=== PATIENT | female | born 1955 | race Caucasian/White ===

== ENCOUNTER 2020-06-01 11:45 | Emergency (ER) | payer MEDICAID, SELFPAY ==
[2020-06-01 11:51] VITALS: BP 178/110; PULSE 91; RESP 18; TEMP 36.6; O2SAT 99; BMI 21.9
--- NOTE | 2020-06-01 13:04 | XR_ITS ---
EXAMINATION: XR SHOULDER, RIGHT CLINICAL INFORMATION: Worsening right shoulder pain. COMPARISON: None TECHNIQUE: Three views of the right shoulder. FINDINGS: There is loss of lateral joint space in AC joint space with periarticular spurring. No visible acute fracture, dislocation or subluxation seen. There is subchondral cystic changes along the superolateral humeral head. The soft tissues are normal. XR/XR shoulder RT min 2V IMPRESSION: Degenerative changes right glenohumeral joint and AC joint. No acute fracture or dislocation seen.
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
== END 2020-06-01 14:33 | disposition home or self-care (01) ==
PROVIDERS: Emergency Provider Emergency Medicine Emergency Medical Services
DX: S46.911A Strain of unspecified muscle, fascia and tendon at shoulder and upper arm level, right arm, initial encounter (principal); M79.601 Pain in right arm; X50.1XXA Overexertion from prolonged static or awkward postures, initial encounter; X50.9XXA Other and unspecified overexertion or strenuous movements or postures, initial encounter; Y93.9 Activity, unspecified; Y92.9 Unspecified place or not applicable; Y99.9 Unspecified external cause status; Z79.899 Other long term (current) drug therapy
CPT/HCPCS: 73030; 99283

== ENCOUNTER → 2020-06-13 11:09 | Outpatient (BNVA) | payer MEDICAID, SELFPAY | PROVIDERS: PCP Internal Medicine; Visit Provider Orthopaedic Surgery | DX: M75.01 Adhesive capsulitis of right shoulder (principal) | CPT/HCPCS: 99202 ==

== ENCOUNTER 2020-08-10 11:00 | Outpatient (RCR) | payer MEDICARE, OTHER, MEDICAID, SELFPAY ==
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
--- NOTE | 2020-08-15 09:49 | MHC.PT.DC ---
[facility] [place] Office [place] Office [place] Office [address] [facility] [phone] F: [phone] F: [phone] F: [phone] F: [phone] Physical Therapy Discharge Report Diagnosis: CAPSULITIS OF RIGHT SHOULDER Date of Surgery: Date of Evaluation: 06/26/20 Date of Discharge: 08/15/20 Treatments to Date: 8 Cancellations to Date: 3 No Shows to Date: 2 Discharge Status: Recommend MD Follow-up Discharge Summary: Pt continues to have most pain with shoulder abduction as well as limited ROM. pt issued ex sheet. D/C today from PT. pt to follow up with medical MD when her insurance is set up and ortho as needed. Electronically signed by: Juliet Camarillo PT, DPT Please sign and return to therapist. Thank you for your referral.
== END 2020-08-15 09:50 | disposition other institution (70) ==
LOC: HO.PT 11:00
PROVIDERS: Visit Provider Orthopaedic Surgery
DX: M75.01 Adhesive capsulitis of right shoulder (principal)
CPT/HCPCS: 97110; 97162

== ENCOUNTER 2021-03-14 11:33 | Outpatient (REF) | payer MEDICARE, SELFPAY ==
[2021-03-14 11:51] LABS: MANUAL DIFF FLAG NO
[2021-03-14 11:59] LABS: Basophils Percent Auto 0.8 % (0-2); Eosinophils Percent Auto 0.8 % (0-4); Hematocrit 44.9 % (37-47); Hemoglobin 14.5 g/dl (12.0-16.0); Imm Gran Abs Auto 0.01 X10*3/uL (0.00-0.03); Imm Gran Pct Auto 0.2 % (0.0-0.4); Lymphocytes Absolute Auto 1.5 X10*3/uL (1.2-4.9); Lymphocytes Percent Auto 29.6 % (20-40); Mean Corpuscular HGB Conc 32.3 g/dl (31.0-35.0); Mean Corpuscular Hemoglobin 29.2 pg (27.0-33.0); Mean Corpuscular Volume 90.3 fL (80-98); Mean Platelet Volume 9.3 fL (9.4-12.3); Monocytes Absolute Auto 0.7 X10*3/uL (0.1-1.2); Monocytes Percent Auto 12.8 % (2-11); Neutrophils Absolute Auto 2.8 X10*3/uL (2.0-8.3); Neutrophils Percent Auto 55.8 % (45-73); Platelet Count 204 X10*3/uL (160-400); Red Blood Count 4.97 X10*6/uL (4.20-5.50); Red Cell Distribution Width 14.3 % (11.0-16.0); White Blood Count 5.1 X10*3/uL (4.8-10.8)
[2021-03-14 12:49] LABS: Alanine Aminotransferase 181 U/L (0-31); Albumin Level 4.8 g/dL (3.5-5.0); Alkaline Phosphatase 104 U/L (39-117); Anion Gap 14 (12-20); Aspartate Amino Transferase 195 U/L (5-31); Bilirubin Total 0.8 mg/dL (0.0-1.0); Blood Urea Nitrogen 13 mg/dL (9-16); Calcium 9.9 mg/dL (8.4-10.2); Carbon Dioxide 27 mmol/L (22-29); Chloride 99 mmol/L (96-108); Cholesterol 239 mg/dL; Estimated Glomerular Filt Rate 52; Glucose Fasting 87 mg/dL (60-99); HDL Cholesterol 101 mg/dL; LDL Cholesterol Calculated 126 mg/dl; Potassium 4.2 mmol/L (3.3-5.1); Sodium 136 mmol/L (135-145); Total Protein 8.4 g/dL (6.5-8.0); Triglycerides 61 mg/dL
[2021-03-14 12:56] LABS: Thyroid Stimulating Hormone 0.87 uIU/mL (0.32-4.0)
[2021-03-19 14:21] LABS: Vitamin D 25-OH, D2 <4 ng/mL; Vitamin D 25-OH, D3 41 ng/mL; Vitamin D 25-OH, Total 41 ng/mL (30-100)
== END 2021-03-14 11:34 | disposition home or self-care (01) ==
LOC: HO.LAB 11:33
PROVIDERS: PCP Internal Medicine; Visit Provider Internal Medicine
DX: E78.5 Hyperlipidemia, unspecified (principal); I10 Essential (primary) hypertension; D64.9 Anemia, unspecified; F33.1 Major depressive disorder, recurrent, moderate; E55.9 Vitamin D deficiency, unspecified
CPT/HCPCS: 36415; 80053; 80061; 82306; 84443; 85025

== ENCOUNTER 2021-04-10 11:00 | Outpatient (RCR) | payer MEDICARE, MEDICAID, SELFPAY ==
[2021-04-09 09:58] VITALS: BP 150/85; PULSE 85
== END 2021-05-10 10:30 | disposition home or self-care (01) ==
LOC: HO.PT 11:00
PROVIDERS: PCP Internal Medicine; Visit Provider Nurse Practitioner Family
DX: R42 Dizziness and giddiness (principal)
CPT/HCPCS: 95992; 97112; 97162

== ENCOUNTER 2021-08-15 09:52 | Outpatient (REF) | payer MEDICARE, MEDICAID, SELFPAY ==
--- NOTE | ~2021-08-15 | MM_ITS ---
EXAMINATION: BONE DENSITOMETRY CLINICAL INDICATION: Encounter for screening for osteoporosis. COMPARISON: None (current study represents initial baseline exam). TECHNIQUE: Using a [employer] DXA System (software version: 13.1) manufactured by [employer], dual-energy x-ray absorptiometry was performed of the lumbar spine and left hip. The images are of good technical quality. Summary results are attached. FINDINGS: AP SPINE L1-L3 (excluding L4): The data of L1-L4 has been changed to exclude the L4 vertebral body, because generative changes at this level may cause overestimation of lumbar spine density. BMD 1.491 g/cm2, Z-score 4.0, T-score 2.7, normal. LEFT FEMUR, NECK: BMD 0.959 g/cm2, Z-score 0.7, T-score -0.6, normal. LEFT FEMUR, TOTAL: BMD 0.939 g/cm2, Z-score 0.5, T-score -0.5, normal. IDENTIFIED RISK FACTORS: 3 or more alcoholic drinks per day, recurrent falls, history of fracture (adult). Early menopause, secondary osteoporosis. HISTORY OF FRACTURE: Other. MEDICATIONS: Calcium supplements or multivitamin, vitamin D. MM/XR DEXA axial skeleton IMPRESSION: 1. DIAGNOSIS: Normal bone density based on the lowest T-score value of -0.6 in the femoral neck applying World Health Organization criteria. 2. 10-YEAR FRACTURE RISK PREDICTION, FRAX: According to the guidelines, FRAX calculation should only be performed on patients in the osteopenia bone density category. Therefore, FRAX was not performed on this patient. 3. Treatment Recommendations: NOF guidelines recommend consideration for treatment in postmenopausal women and men age 50 and older presenting with the following: -A hip or vertebral (clinical or morphometric) fracture. -T-score less than or equal to -2.5 at the femoral neck or spine after appropriate evaluation to exclude secondary causes. -Low bone mass at the hip or spine and a 10-year fracture probability by FRAX of greater than or equal to 3% for hip fracture or greater than or equal to 20% for major osteoporotic fracture based on the [place] adapted WHO algorithm. 4. Other Recommendations: All treatment decisions require clinical judgment and consideration of individual patient factors, including patient preferences, comorbidities, previous drug use, risk factors not captured in the FRAX model (e.g. frailty, falls, vitamin D deficiency, increased bone turnover, interval significant decline in bone density) and possible under or overestimation of fracture risk by FRAX. FUTURE SCAN RECOMMENDATION: People with diagnosed cases of osteoporosis or at high risk for fracture should have regular bone mineral density tests. For patients eligible for Medicare, routine testing is allowed once every 2 years. The testing frequency can be increased to one year for patients who have rapidly progressing disease, those who are receiving or discontinuing medical therapy to restore bone mass, or have additional risk factors.
--- NOTE | ~2021-08-15 | MM_ITS ---
EXAMINATION: MM SCREENING DIGITAL BREAST TOMOSYNTHESIS, BILATERAL CLINICAL INFORMATION: Screening. Asymptomatic. The lifetime risk of breast cancer based on the Tyrer-Cuzick Model is 4%. COMPARISON: Mammography: 05/18/2013 TECHNIQUE: Digital breast tomosynthesis is performed in both the craniocaudal and mediolateral oblique views along with computer-aided detection (CAD). Synthesized 2D images are generated from the tomosynthesis. FINDINGS: There are scattered areas of fibroglandular density (ACR BI-RADS breast composition Category b). There are no significant masses, abnormal calcifications, or other abnormalities. Parenchymal pattern is similar to prior exam 2012. The axilla are unremarkable. No significant changes. MM/MM tomosynthesis screening BI IMPRESSION: No mammographic evidence of malignancy. ASSESSMENT: BI-RADS 1: Negative RECOMMENDATION: Routine annual mammography screening. This patient's information was entered into a reminder system with a target due date for their next mammogram.
== END 2021-08-15 09:53 | disposition home or self-care (01) ==
LOC: HO.MAMMO 09:52
PROVIDERS: PCP Internal Medicine; Visit Provider Nurse Practitioner Family
DX: Z12.31 Encounter for screening mammogram for malignant neoplasm of breast (principal); Z13.820 Encounter for screening for osteoporosis; Z78.0 Asymptomatic menopausal state
CPT/HCPCS: 77063; 77067; 77080

== ENCOUNTER 2022-01-09 08:34 | Outpatient (REF) | payer OTHER, MEDICAID, SELFPAY ==
--- NOTE | ~2022-01-09 | XR_ITS ---
EXAMINATION: XR HIP, LEFT CLINICAL INFORMATION: Pain COMPARISON: Previous pelvis and right hip x-ray from 2015 TECHNIQUE: Two views of the left hip and one view of the pelvis. FINDINGS: There is arthritis at the left hip joint with joint space narrowing, osteophyte formation and subchondral cyst formation. There is a right hip replacement in satisfactory position. There is soft tissue calcification inferior to the right hip joint that appears unchanged. Bones of the pelvis are unremarkable. There are degenerative changes of the visualized lower lumbar spine. XR/XR hip LT w PEL1V IMPRESSION: Left hip arthritis.
== END 2022-01-09 08:35 | disposition home or self-care (01) ==
LOC: HO.HOSX 08:34
PROVIDERS: Visit Provider Physician Assistant
DX: M25.552 Pain in left hip (principal)
CPT/HCPCS: 73502

== ENCOUNTER 2022-03-01 09:14 | Outpatient (REF) | payer OTHER, SELFPAY ==
[2022-03-01 09:48] LABS: MANUAL DIFF FLAG NO
[2022-03-01 10:36] LABS: Basophils Absolute Auto 0.1 X10*3/uL (0.0-0.2); Basophils Percent Auto 1.1 % (0-2); Eosinophils Absolute Auto 0.1 X10*3/uL (0.0-0.4); Eosinophils Percent Auto 1.3 % (0-4); Hemoglobin 11.6 g/dl (12.0-16.0); Imm Gran Abs Auto 0.01 X10*3/uL (0.00-0.03); Imm Gran Pct Auto 0.2 % (0.0-0.4); Lymphocytes Absolute Auto 1.1 X10*3/uL (1.2-4.9); Lymphocytes Percent Auto 21.3 % (20-40); Mean Corpuscular HGB Conc 32.2 g/dl (31.0-35.0); Mean Corpuscular Hemoglobin 27.4 pg (27.0-33.0); Mean Corpuscular Volume 85.1 fL (80.0-98.0); Mean Platelet Volume 9.4 fL (9.4-12.3); Monocytes Absolute Auto 0.5 X10*3/uL (0.1-1.2); Monocytes Percent Auto 10.1 % (2-11); Neutrophils Absolute Auto 3.5 x10*3/uL (2.0-8.3); Platelet Count 254 X10*3/uL (160-400); Red Blood Count 4.23 X10*6/uL (4.20-5.50); Red Cell Distribution Width 14.2 % (11.0-16.0); White Blood Count 5.3 X10*3/uL (4.8-10.8)
[2022-03-01 11:03] LABS: Alanine Aminotransferase 15 U/L (0-31); Albumin Level 4.3 g/dL (3.5-5.0); Alkaline Phosphatase 83 U/L (39-117); Anion Gap 16 (12-20); Aspartate Amino Transferase 27 U/L (5-31); Bilirubin Total 0.5 mg/dL (0.0-1.0); Blood Urea Nitrogen 13 mg/dL (9-16); Calcium 9.5 mg/dL (8.4-10.2); Carbon Dioxide 26 mmol/L (22-29); Chloride 101 mmol/L (96-108); Cholesterol 196 mg/dL; Estimated Glomerular Filt Rate 58; Glucose Fasting 91 mg/dL (60-99); HDL Cholesterol 79 mg/dL; LDL Cholesterol Calculated 108 mg/dl; Potassium 4.7 mmol/L (3.3-5.1); Sodium 138 mmol/L (135-145); Total Protein 7.2 g/dL (6.5-8.0); Triglycerides 46 mg/dL
[2022-03-01 11:34] LABS: Folate 18.1 ng/mL (> or = 4.0); Vitamin B12 675 pg/mL (200-900)
[2022-03-06 16:07] LABS: Vitamin B1 17 nmol/L (8-30)
== END 2022-03-01 09:15 | disposition home or self-care (01) ==
LOC: HO.LAB 09:14
PROVIDERS: PCP Internal Medicine; Visit Provider Internal Medicine
DX: J45.30 Mild persistent asthma, uncomplicated (principal); I10 Essential (primary) hypertension; F10.10 Alcohol abuse, uncomplicated
CPT/HCPCS: 36415; 80053; 80061; 82607; 82746; 84425; 85025

== ENCOUNTER 2022-03-25 15:15 | Outpatient (REF) | payer OTHER, SELFPAY ==
--- NOTE | ~2022-03-25 | XR_ITS ---
EXAMINATION: XR LUMBOSACRAL SPINE WITH OBLIQUES CLINICAL INFORMATION: Radiculopathy COMPARISON: Previous x-ray and MRI of the lumbar spine August 2013 TECHNIQUE: AP, both oblique, flexion and extension and lateral views of the lumbar spine. Lateral view of the lumbosacral junction. FINDINGS: There is curvature of the lumbar spine to the left. There is a 6 mm retrolisthesis of L1 with respect to L2. This is stable on flexion-extension views. There is 3 mm anterolisthesis of L4 with respect L5. This increases to 9 mm on flexion view. No fracture or dislocation. Multilevel degenerative spondylosis degenerative disc disease and facet arthritis. No fracture or dislocation. Normal paraspinal soft tissues. Arthritis at the right sacroiliac joint. Orthopedic hardware in the right hip. Arthritis at the left hip. XR/XR lumbar spine 6V w bending IMPRESSION: Scoliosis and multilevel degenerative changes. Increasing anterolisthesis of L4 with respect L5 on flexion view.
== END 2022-03-25 15:16 | disposition home or self-care (01) ==
LOC: HO.XRAY 15:15
PROVIDERS: PCP Internal Medicine; Visit Provider Nurse Practitioner Family
DX: M54.16 Radiculopathy, lumbar region (principal); M54.30 Sciatica, unspecified side; M16.12 Unilateral primary osteoarthritis, left hip; M51.36 Other intervertebral disc degeneration, lumbar region
CPT/HCPCS: 72114; 99202

== ENCOUNTER 2022-04-16 08:42 | Outpatient (REF) | payer OTHER, SELFPAY ==
--- NOTE | ~2022-04-16 | MR_ITS ---
EXAMINATION: MR LUMBAR SPINE WITHOUT CONTRAST CLINICAL INFORMATION: Severe lower extremity pain. COMPARISON: Lumbar spine MRI 08/26/2013. TECHNIQUE: MRI of the lumbar spine was obtained using routine sequences without contrast. FINDINGS: There is grade 1 anterolisthesis of L4 on L5 that appears to be related to advanced facet degenerative changes at this level and slight grade 1 retrolisthesis of L5 on S1. There are mixed predominantly type I degenerative endplate changes at L1-L2. Mixed degenerative endplate changes at L4-L5 and L5-S1 are also noted. There is loss of intervertebral disc height and T2 signal intensity at multiple levels related to disc degeneration. The tip of the conus medullaris is located at L1-L2. No mass effect on the conus. Visualized distal cord signal intensity is normal. At L1-L2 there is a diffusely bulging disc. Bilateral facet degenerative change. Moderate canal stenosis. Subarticular zone narrowing causes abutment of the right traversing L2 nerve roots. No foraminal nerve root compression At L2-L3 there is a diffusely bulging disc. Bilateral facet degenerative change. Mild canal stenosis. No mass effect on the traversing or foraminal nerve roots. At L3-L4 there is a diffusely bulging disc. Bilateral facet degenerative change. Mild canal stenosis. No mass effect on the traversing or foraminal nerve roots. At L4-L5 there is a pseudodisc bulge. Advanced bilateral facet degenerative change. Mild canal stenosis. There is asymmetric narrowing of the left subarticular zone causing displacement and possible compression of the left traversing L5 nerve roots. No foraminal nerve root compression. At L5-S1 there is a bulging disc. Bilateral facet degenerative change. No canal stenosis. No mass effect on the traversing or foraminal nerve roots. Limited visualization of the retroperitoneal anatomy reveals asymmetric atrophy of the right psoas muscle. MR/MR lumbar spine wo con IMPRESSION: There is multilevel degenerative spondylosis of the lumbar spine with grade 1 anterolisthesis of L4 on L5 related to advanced facet degenerative changes at this level. Slight grade 1 retrolisthesis of L5 on S1. There is moderate canal stenosis at L1-L2. Mild canal stenosis at L2-L3, L3-L4, and L4-L5. Asymmetric narrowing of the left subarticular zone at L4-L5 causes displacement and possible compression of the left traversing L5 nerve roots.
== END 2022-04-16 08:43 | disposition home or self-care (01) ==
LOC: HO.MRI 08:42
PROVIDERS: Visit Provider Nurse Practitioner Family
DX: M41.9 Scoliosis, unspecified (principal); M43.16 Spondylolisthesis, lumbar region; M51.36 Other intervertebral disc degeneration, lumbar region; M54.16 Radiculopathy, lumbar region
CPT/HCPCS: 72148

== ENCOUNTER 2022-04-23 06:22 | Inpatient (IN) | payer OTHER, MEDICAID, SELFPAY ==
--- NOTE | 2022-04-09 10:13 | ECG_ITS ---
Test Reason : ZO1.810 Blood Pressure : / mmHG Vent. Rate : 086 BPM Atrial Rate : 086 BPM P-R Int : 142 ms QRS Dur : 082 ms QT Int : 370 ms P-R-T Axes : 068 055 034 degrees QTc Int : 442 ms Normal sinus rhythm Possible Left atrial enlargement Borderline ECG No previous ECGs available Referred By: Miles Lacey Electronically Signed By:SON WILLIS MD
[2022-04-09 10:33] LABS: MANUAL DIFF FLAG NO
[2022-04-09 11:21] LABS: Basophils Percent Auto 0.6 % (0-2); Eosinophils Absolute Auto 0.1 X10*3/uL (0.0-0.4); Eosinophils Percent Auto 1.2 % (0-4); Hematocrit 37.1 % (37.0-47.0); Hemoglobin 11.9 g/dl (12.0-16.0); Imm Gran Abs Auto 0.03 X10*3/uL (0.00-0.03); Imm Gran Pct Auto 0.5 % (0.0-0.4); Lymphocytes Absolute Auto 1.6 X10*3/uL (1.2-4.9); Lymphocytes Percent Auto 23.9 % (20-40); Mean Corpuscular HGB Conc 32.1 g/dl (31.0-35.0); Mean Corpuscular Hemoglobin 27.1 pg (27.0-33.0); Mean Corpuscular Volume 84.5 fL (80.0-98.0); Mean Platelet Volume 8.9 fL (9.4-12.3); Monocytes Absolute Auto 0.6 X10*3/uL (0.1-1.2); Monocytes Percent Auto 9.7 % (2-11); Neutrophils Absolute Auto 4.2 x10*3/uL (2.0-8.3); Neutrophils Percent Auto 64.1 % (45-73); Platelet Count 243 X10*3/uL (160-400); Red Blood Count 4.39 X10*6/uL (4.20-5.50); Red Cell Distribution Width 14.5 % (11.0-16.0); White Blood Count 6.6 X10*3/uL (4.8-10.8)
[2022-04-09 11:23] VITALS: BP 156/88; PULSE 84; RESP 16; O2SAT 99; BMI 24.1
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
[2022-04-09 11:58] LABS: Anion Gap 15 (12-20); Blood Urea Nitrogen 15 mg/dL (9-16); Calcium 9.4 mg/dL (8.4-10.2); Carbon Dioxide 27 mmol/L (22-29); Chloride 101 mmol/L (96-108); Creatinine Clr Calc Pharmacy 45.6; Estimated Glomerular Filt Rate 49; Glucose Random 79 mg/dL (60-115); Potassium 4.5 mmol/L (3.3-5.1); Sodium 138 mmol/L (135-145)
[2022-04-09 14:16] LABS: MRSA Nasal PCR NEGATIVE (Negative); SA Nasal PCR NEGATIVE (Negative)
[2022-04-23] VITALS (21 sets, daily range): BP systolic 102–140; BP diastolic 55–85; PULSE 74–100; RESP 10–20; TEMP 36.1–36.9; O2SAT 90–100
--- NOTE | ~2022-04-23 | XR_ITS ---
EXAMINATION: XR PELVIS CLINICAL INFORMATION: Left total hip arthroplasty COMPARISON: Pelvis x-ray December 2021 TECHNIQUE: AP portable supine view of the pelvis. FINDINGS: Postop changes related to left total hip arthroplasty with Crohn's the usual position. No periprosthetic fracture or suspicious area of lucency. Skin michelle and air/gas present in the soft tissues compatible with immediate postoperative result. Right longstem revision revision hip arthroplasty noted with cerclage wires in the subtrochanteric portion of the femur. The distal portion of the femoral component is outside the [id number] the exam. No periprosthetic fracture or suspicious area of lucency. XR/XR pelvis 1-2V IMPRESSION: Expected postoperative changes related to left total hip arthroplasty.
--- OUTSIDE RECORDS SUMMARY | 2022-04-23 06:27 | XMS_ITS | Continuity of Care Document ---
:1955 Author Organization [facility] Address [address] [place] [address]- Care Team Providers Name Role Phone Not on Staff, PCP Primary Care Physician Unavailable Encounter [facility] [place] Date(s): 04/30/20 - 05/01/[address] [id number]- Encounter Diagnosis Substance intoxication (Final) - 05/01/20 Discharge Disposition: A-D/C Home Attending Physician: Delilah Kwon MD Admitting Physician: Delilah Kwon MD Referring Physician: Not on Staff, Referring MD Allergies, Adverse Reactions, Alerts No Known Medication Allergies Substance Reaction Severity Status NKA Active Results Radiology Reports Exam Date Time Procedure Performing Provider Status 04/30/20 8:31 PM Chest Portable Paty Altman (Verified) Notes:(Chest Portable) Reason For Exam: Shortness of BreathRESULT: Chest Portable Chest Portable Reason: Shortness of Breath; Clinical Question(s): CHF COMPARISON: None. FINDINGS: LINES AND TUBES: None. LUNGS AND PLEURA: Clear lungs. Normal pulmonary vascularity. No pleural effusion. No pneumothorax. HEART, MEDIASTINUM AND JANICE: Heart is normal in size. Normal upper mediastinal and hilar contour. BONES AND SOFT TISSUES: No acute abnormality. IMPRESSION: No acute abnormality. WSN: [id number] Ordering Physician: Tsering Maria Dictated By: Steffany Reddy MD Dictated Date/Time: 04/30/20 8:34 pm Reviewed By: Steffany Reddy MD Signed By: Steffany Reddy MD Signed Date/Time: 04/30/20 8:34 pm Transcribed By: STANISLAW Transcribed Date/Time: 04/30/20 8:33 pm Vital Signs Most recent to oldest 1 2 3 [Reference Range]: Oxygen Saturation [94-100 100 % 100 % 100 % %] (05/01/20 8:15 PM) (05/01/20 3:20 PM) (05/01/20 11:19 AM) Pulse Rate [55-90 bpm] 70 bpm 67 bpm 69 bpm (05/01/20 8:15 PM) (05/01/20 3:20 PM) (05/01/20 11:19 AM) Blood Pressure 121/68 mm Hg 120/65 mm Hg 136/81 mm Hg [90-138/55-84 mm Hg] (05/01/20 8:15 PM) (05/01/20 3:20 PM) (04/18 09/05 11:19 AM) Respiratory Rate [16-30 20 br/min 18 br/min 18 br/mi n br/min] (05/01/20 8:15 PM) (05/01/20 3:20 PM) (05/01/20 11:19 AM) Temperature [96.8-100.4 98.0 DegF 98.0 DegF 98.0 Deg F DegF] (05/01/20 8:15 PM) (05/01/20 3:20 PM) (05/01/20 11:19 AM) Liters per Minute 1 L/min 2 L/min 3 L/min (04/30/20 9:48 PM) (04/30/20 9:00 PM) (04/30/20 8:53 PM) Mode of Delivery (Oxygen) Room air Room air Room a ir (05/01/20 8:15 PM) (05/01/20 3:20 PM) (05/01/20 11:19 AM) Blood pressure sites Arm, right Arm, left (05/01/20 7:51 AM) (05/01/20 7:35 AM) Temperature Route Oral Oral Oral (05/01/20 8:15 PM) (05/01/20 3:20 PM) (05/01/20 11:19 AM)
--- OUTSIDE RECORDS SUMMARY | 2022-04-23 06:27 | XMS_ITS | Continuity of Care Document ---
:1955 Author Organization [facility] Address [address] [place] [address]- Care Team Providers Name Role Phone Not on Staff, PCP Primary Care Physician Unavailable Encounter [facility] [place] Date(s): 02/25/22 - 02/25/22 [facility] [address] [place] [id number]- Discharge Disposition: A-D/C Walkout Attending Physician: Not on Staff, Attending MD Admitting Physician: Not on Staff, Admitting MD Referring Physician: Not on Staff, Referring MD Allergies, Adverse Reactions, Alerts No Known Allergies Vital Signs Most recent to oldest [Reference Range]: 1 2 Height 170 cm 170 cm (02/25/22 7:52 AM) (02/25/22 7:43 AM) Weight 68 kg 68 kg (02/25/22 7:52 AM) (02/25/22 7:43 AM) Oxygen Saturation [94-100 %] 98 % 98 % (02/25/22 10:05 AM) (02/25/22 7:43 AM) Pulse Rate [55-90 bpm] 95 bpm 112 bpm *H* *H* (02/25/22 10:05 AM) (02/25/22 7:43 AM) Body Mass Index [18.5-24.99 kg/m2] 23.53 kg/m2 (02/25/22 7:43 AM) Blood Pressure [90-138/55-84 mm Hg] 150/98 mm Hg 183/ 96 mm Hg *H* *H* (02/25/22 10:05 AM) (02/25/22 7:43 AM) Respiratory Rate [16-30 br/min] 14 br/min 14 br/mi n *L* *L* (02/25/22 10:05 AM) (02/25/22 7:43 AM) Temperature [96.8-100.4 DegF] 97.6 DegF 97.8 DegF (02/25/22 10:05 AM) (02/25/22 7:43 AM) Mode of Delivery (Oxygen) Room air Room air (02/25/22 10:05 AM) (02/25/22 7:43 AM) Blood pressure sites Arm, right (02/25/22 10:05 AM) Temperature Route Oral Oral (02/25/22 10:05 AM) (02/25/22 7:43 AM) Dry Weight 68 kg (02/25/22 7:52 AM) Weight Obtained Via Patient/family stated (02/25/22 7:43 AM) Dry Weight Obtained Via Patient/family stated (02/25/22 7:52 AM) Social History Social History Type Response Smoking Status Former smoker, quit more yanet n 30 days ago; Other: quit 2019; entered on: 02/25/22 Sex Patient Care team information PersonnelName: Not on Staff, PCP
[2022-04-23 06:34] LABS: Hematocrit 36.2 % (37.0-47.0); Hemoglobin 12.1 g/dl (12.0-16.0)
[2022-04-23] MEDS: oxyCODONE HCl ER 10 MG TAB.ER.12H PO ×3 (06:34→21:20)
[2022-04-23] MEDS: vancomycin HCL 1,000 MG in 0.9 % Sodium Chloride 250 ML 270 MG IV ×2 (07:10→19:32)
[2022-04-23] MEDS: Lactated Ringers 1,000 ML 100 ML IVCONT ×2 (07:13→14:25)
[2022-04-23 07:28] LABS: COVID-19 Test Negative (Negative); IDNOW Serial# BCCEAD1C
--- NOTE | 2022-04-23 07:54 | MHC.SHP ---
Pre-Procedural Eval Section A Date of Service: 04/23/22 The patient is an INPATIENT: No Changes since office visit: Yes Patient answered all questions; No Cold of Flu in the past 2 weeks, No New Medical Problems and No Changes in Medication The History & Physical has been completed within 30 days and I have reviewed it.: Yes Section B Chief Complaint: Unilateral primary osteoarthritis, left hip Allergies: Allergies Allergy/AdvReac Type Severity Reaction Status Date / Time lactose Allergy Severe Gastrointestinal Verified 04/18/22 13:04 Upset Plan I have reviewed the history and physical and performed a pertinent physical examination on my patient. No changes have occurred unless specified.
--- NOTE | 2022-04-23 09:55 | PM.OP ---
Brief Operative Note Date of Service: 04/23/22 Pre-op diagnosis: Left hip OA Post-op diagnosis: same Procedure: Left DENISHA Implants: [place] Trident2 54/ 20deg lip [place] Accolade2 #5 127 deg with +2.5 36 Ceramic femoral head Surgeon: Miles Lacey MD Anesthesia: GETA and local Was an Anesthesiologist Attending used for this Procedure?: Yes Anesthesiologist Attending: Espinoza Calderon Estimated blood loss (mL): 150 IV fluids (mL): 1,000 Pathology: other Condition: stable Disposition: PACU
--- NOTE | 2022-04-23 10:03 | W.PM.OPN ---
Operative Note Operative Note Date of Service: 04/23/22 Narrative: Date of Service: 04/23/22 Pre-op diagnosis: Left hip OA Post-op diagnosis: same Procedure: Left DENISHA Implants: [place] Trident2 54/ 20deg lip [place] Accolade2 #5 127 deg with +2.5 36 Ceramic femoral head Surgeon: Miles Lacey MD Anesthesia: GETA and local Was an Home Demonstrator used for this Procedure?: Yes Home Demonstrator: Espinoza Calderon Estimated blood loss (mL): 150 IV fluids (mL): 1,000 Pathology: other Condition: stable Procedure in detail: Patient was brought into the operating room and placed in the right lateral decubitus position. All bony prominences were well padded and the limb was prepped and draped in standard sterile fashion. A time-out was called to identify proper site procedure proper surgeon IV antibiotics and 1 g of transaxemic acid were administered. I began by making a curvilinear incision over the posterolateral aspect of the greater trochanter. Dissection was taken down to the tensor fascia which was incised in line with the incision and a Charnley retractor was placed. Cautery was used to maintain hemostasis. The hip was internally rotated and the external rotators were identified. The vessels were cauterized and a full-thickness capsular/external rotator layer was developed starting just proximal to the piriformis. This layer was tagged and a dull Hohmann retractor was placed underneath the neck in the hip was dislocated. A neck cut was made 1 cm proximal to the lesser trochanter and the head and neck were removed and measured 50mm on the back table. I then removed the labrum and cauterized the fovea. I started with a 44 reamer and medialized to the inner table. I sequentially reamed up to a size 53 and impacted a 54mm cup at 45 degrees of inclination and 25 degrees of version. I then placed a 20 deg posterior lipped liner and turned my attention to the femur. I identified the piriformis insertion and used this as a starting point for my bobbi cutter. The medius tendon was protected with a Hibs retractor. A Charnley awl was inserted in the canal and a curved curette used to remove the lateral bone. I irrigated copiously. I then sequentially broached in the patient's natural version to a size 5 and placed my trial implants. I used a #5/127/+0 based on my pre-operative template. Using a trail head I took the hip through range of motion. I was satisfied with the stability. She has a LLD with the right leg longer than the left. This was problematic for her and so I trialed a +5 but this felt tight in extension and so I settled for a +2.5 to give her length. I removed all instrumentation and copiously irrigated. I placed my final femoral implant and again took the hip through range of motion and was satisfied with the stability and length. The final 2.5 implant was impacted in place and tyhe hip reduced. I then irrigated for 3 minutes with iodine and placed 1 g of local transaxemic acid. I performed a capsular closure with 2.0 fiberwire, Faby's fascia with 0 Vicryl, subcuticular with 2-0 Vicryl and the skin with michelle. Patient was placed into a sterile dressing. Patient was extubated brought to the recovery room in stable condition. There were no known complications.
[2022-04-23] MEDS: fentaNYL citrate/PF 100 MCG/2 ML VIAL 25 MCG IVPUSH (10:42)
[2022-04-23] MEDS: HYDROmorphone HCl 0.5 MG/0.5 ML SYRINGE 0.25 MG IVPUSH ×2 (10:59→14:25)
--- NOTE | 2022-04-23 14:15 | HO.PM.IMCN ---
History of Present Illness Data of Consult Service Date: 04/23/22 Requesting physician: Miles Lacey Primary Care Provider: Khalida Barnes MD HPI 67-year-old woman with a history of anxiety, depression admitted for left total hip arthroplasty. Surgery was unremarkable. Patient is hemodynamically stable. She has no acute complaints at this time. She has been able to eat and drink without any problems. She only complains of being tired at this point. Review of Systems Review of Systems: Denies any recent fever chills or decrease in appetite respiratory denies any shortness of breath coverage production cardiovascular denies chest pain gastrointestinal denies any dysphagia abdominal pain nausea vomiting or diarrhea genitourinary denies any dysuria frequency or hematuria musculoskeletal denies any joint pain or swelling neuropsych denies any weakness or seizures all other systems reviewed are negative [facility] Medical History Depression Essential hypertension ANAT (generalized anxiety disorder) History of alcohol abuse History of head injury Hx MRSA infection Insomnia Mild persistent asthma Moderate recurrent major depression TIA (transient ischemic attack) Vertigo Family History Father CVD (cardiovascular disease) Surgical History Hx of left knee surgery Normal colonoscopy S/P hip replacement Social History Household Members: Family Household Members Other:: mother Housing: Apartment Are you a primary assistant child care teacher to a significant other at home: No Do you presently have visiting nurse or other home services: No Alcohol intake: current Alcohol intake frequency: former alcohol drinker Alcohol type: wine and hard liquor Patient Tobacco Use Status: Former Tobacco user Quit Date: 2018 Tobacco use type: Cigarette e-Cigarette/Vaping Use: Never Used Second Hand Smoke Exposure: No Use of substances other than those prescribed or required for medical reasons: No Have you been hit, kicked, punched, or otherwise hurt by someone within the past year? If so, by whom?: No Do you feel safe in your current relationship?: No Current Relationship Is there a partner from a previous relationship who is making you feel unsafe now?: No Are you made to feel afraid or neglected: No Spiritual Healthcare Practices: none Mu-Ism Healthcare Practices: none Cultural Healthcare Practices: none Are you DNR?: No Advance Directives: No Advance Directives Information Provided: Yes Advance Directives on File: No Do you have thoughts of harming others: None Do you have a plan to hurt others: No Plan Recently lost weight without trying: No Nutrition Risks: No Nutritional Risk Patient : No Poor oral hygiene: No service: No Current occupational status: disabled Current occupation: Right handed Cognitive needs: Yes (cane) Hearing needs: No Vision needs: Yes (Glasses) Meds Allergies Allergy/AdvReac Type Severity Reaction Status Date / Time lactose Allergy Severe Gastrointestinal Verified 04/18/22 13:04 Upset Active Medications: Current Medications Acetaminophen (Acetaminophen 325 Mg Tablet) 650 mg PO Q6H PRN PRN Reason: Pain, Mild (Pain Scale 1-3) Albuterol Sulfate (Albuterol Sulfate 90 Mcg 8 Gm Inhaler) 1 puff INHALE Q4-6H PRN PRN Reason: shortness of breath or wheezing Celecoxib (Celecoxib 200 Mg Capsule) 200 mg PO BID DEE Clonidine HCl (Clonidine Hcl 0.1 Mg Tablet) 0.1 mg PO Q8H DEE; Protocol Docusate Sodium (Docusate Sodium 100 Mg Capsule) 100 mg PO BID DEE Fentanyl (Fentanyl Citrate/Pf 100 Mcg/2 Ml Vial) 25 mcg IVPUSH Q5M PRN; Protocol PRN Reason: Pain, Moderate (Pain Scale 4-6 Last Admin: 04/23/22 10:42 Dose: 25 mcg Hydromorphone HCl (Hydromorphone Hcl 0.5 Mg/0.5 Ml Syringe) 0.25 mg IVPUSH Q5M PRN; Protocol PRN Reason: Pain, Severe (Pain Scale 7-10) Last Admin: 04/23/22 10:59 Dose: 0.25 mg Hydromorphone HCl (Hydromorphone Hcl 0.5 Mg/0.5 Ml Syringe) 0.25 mg IVPUSH Q4H PRN; Protocol PRN Reason: Pain, Severe (Pain Scale 7-10) Promethazine HCl 6.25 mg/ (Sodium Chloride) 50.25 mls @ 201 mls/hr IV ONCE PRN PRN Reason: Nausea and Vomiting Lactated Ringer's (Lr) 1,000 mls @ 100 mls/hr IVCONT .Q10H [facility] Stop: 04/24/22 14:05 Non-Formulary Medication (Ferrous Sulfate) 27 mg PO DAILY [facility] Non-Formulary Medication (Lidocaine) 1 patch TOPICAL DAILY PRN PRN Reason: pain Non-Formulary Medication (Magnesium Oxide) 500 mg PO DAILY [facility] Ondansetron HCl (Ondansetron Hcl 4 Mg/2 Ml Vial) 4 mg IVPUSH Q8H PRN PRN Reason: Nausea and Vomiting Oxycodone HCl (Oxycodone Hcl Immed Release 5 Mg Tablet) 10 mg PO Q4H PRN PRN Reason: Pain, Moderate (Pain Scale 4-6 Oxycodone HCl (Oxycodone Hcl Er 10 Mg Tab.Er.12h) 10 mg PO BID [facility] Ropinirole HCl (Ropinirole Hcl 1 Mg Tablet) 1 mg PO BEDTIME [facility] Sodium Chloride (0.9 % Sodium Chloride Flush 3 Ml Syringe) 3 ml IVFLUSH QSHIFT [facility] Last Admin: 04/23/22 14:15 Dose: Not Given Home Medications Medication Instructions Recorded Confirmed Last Taken Type Vitamin C 04/09/22 04/16/22 Unknown History Vitamin D3 04/09/22 04/16/22 Unknown History ferrous sulfate 27 mg iron tablet 27 mg PO DAILY 04/15/22 04/16/22 Unknown History magnesium oxide 500 mg capsule 500 mg PO DAILY 04/15/22 04/16/22 Unknown History Physical Exam Vital Signs and Narrative: Vital Signs: Last Vital Signs Temp 98.2 F 04/23/22 13:45 Pulse 84 04/23/22 13:45 Resp 16 04/23/22 13:45 BP 122/60 04/23/22 13:45 Pulse Ox 98 04/23/22 13:45 O2 Del Method 04/23/22 13:45 O2 Flow Rate 2 04/23/22 13:15 BMI result Body Mass Index 24.1 Appearing in no acute distress head is normocephalic atraumatic eyes pupils are PERRLA sclera is anicteric mouth throat mucous membranes are intact and moist neck is supple no lymphadenopathy, no JVD noted lung sounds are clear to auscultation heart regular rate rhythm, clear S1, S2 positive bowel sounds, abdomen is soft, nontender neuro patient is alert x3, no focal deficits Surgical dressing intact, surgical wound not visualized Results Labs CBC and Chem 7: 04/23/22 06:27 04/09/22 10:32 Labs: Laboratory Results - last 24 hr 04/23/22 06:26 COVID-19 (RAE) Negative COVID-19 Clin Com See Note Imaging Radiologist's Impressions: Impressions Pelvis X-Ray 04/23/22 11:42 IMPRESSION: Expected postoperative changes related to left total hip arthroplasty. Assessment and Plan (1) Left hip pain: Status: Acute Plan 67-year-old woman status post left total hip arthroplasty Left total hip arthroplasty Management as per surgical team Pain management Asthma No exacerbation Continue albuterol as needed Chronic anemia Iron supplementation DVT prophylaxis as per admitting team Full code Attending Dr. Watson Patient stable at this time. Medical consultation completed. Will sign off
[2022-04-23] MEDS: cloNIDine HCL 0.1 MG TABLET PO ×2 (14:24→21:19)
[2022-04-23] MEDS: Celecoxib 200 MG CAPSULE PO ×2 (14:24→21:19)
[2022-04-23] MEDS: Docusate Sodium 100 MG CAPSULE PO ×2 (14:24→21:19)
[2022-04-23] MEDS: oxyCODONE HCl Immed Release 5 MG TABLET 10 MG PO (15:38)
[2022-04-23] MEDS: rOPINIRole HCL 1 MG TABLET PO (21:20)
[2022-04-24] VITALS: BP 130/62; PULSE 100; RESP 18; TEMP 37.1; O2SAT 97
[2022-04-24] MEDS: Lactated Ringers 1,000 ML 100 ML IVCONT (00:09)
[2022-04-24] MEDS: oxyCODONE HCl Immed Release 5 MG TABLET 10 MG PO ×3 (00:13→11:50)
[2022-04-24 04:00] VITALS: BP 112/63; PULSE 71; RESP 18; TEMP 36.6; O2SAT 98
[2022-04-24] MEDS: cloNIDine HCL 0.1 MG TABLET PO (04:01)
[2022-04-24] MEDS: Acetaminophen 325 MG TABLET 650 MG PO (04:01)
[2022-04-24 05:28] LABS: MANUAL DIFF FLAG NO
[2022-04-24 05:32] LABS: Hematocrit 30.7 % (37.0-47.0); Imm Gran Abs Auto 0.03 X10*3/uL (0.00-0.03); Imm Gran Pct Auto 0.3 % (0.0-0.4); Lymphocytes Absolute Auto 0.7 X10*3/uL (1.2-4.9); Lymphocytes Percent Auto 7.5 % (20-40); Mean Corpuscular HGB Conc 32.6 g/dl (31.0-35.0); Mean Corpuscular Hemoglobin 27.6 pg (27.0-33.0); Mean Corpuscular Volume 84.8 fL (80.0-98.0); Mean Platelet Volume 9.1 fL (9.4-12.3); Monocytes Absolute Auto 1.2 X10*3/uL (0.1-1.2); Monocytes Percent Auto 13.4 % (2-11); Neutrophils Percent Auto 78.8 % (45-73); Platelet Count 186 X10*3/uL (160-400); Red Blood Count 3.62 X10*6/uL (4.20-5.50); Red Cell Distribution Width 15.2 % (11.0-16.0); White Blood Count 8.9 X10*3/uL (4.8-10.8)
[2022-04-24 05:49] LABS: Anion Gap 12 (12-20); Blood Urea Nitrogen 11 mg/dL (9-16); Calcium 9.6 mg/dL (8.4-10.2); Carbon Dioxide 28 mmol/L (22-29); Chloride 101 mmol/L (96-108); Creatinine Clr Calc Pharmacy 58.1; Estimated Glomerular Filt Rate > 60; Glucose Fasting 126 mg/dL (60-99); Potassium 4.8 mmol/L (3.3-5.1); Sodium 136 mmol/L (135-145)
[2022-04-24] MEDS: oxyCODONE HCl ER 10 MG TAB.ER.12H PO (06:27)
[2022-04-24 07:21] VITALS: BP 146/68; PULSE 80; RESP 18; TEMP 36.6; O2SAT 97
--- NOTE | 2022-04-24 07:22 | PHA.MEDREC ---
Pharmacy Consult ? Medication Reconciliation Pharmacy has reviewed the medication reconciliation done by Lucina.
[2022-04-24] MEDS: Celecoxib 200 MG CAPSULE PO (07:28)
[2022-04-24] MEDS: Docusate Sodium 100 MG CAPSULE PO (07:28)
[2022-04-24] MEDS: Ferrous Sulfate 324 MG TABLET.DR 162 MG PO (07:28)
[2022-04-24] MEDS: Magnesium Oxide 400 MG TABLET PO (07:30)
--- NOTE | 2022-04-24 07:42 | PM.PNORT ---
Subjective Subjective Date of Service: 04/24/22 Interval history: POD1 s/p LTHA patient is resting in bed comfortably. No overnight events. Pain is managed. No additional complaints. Physical Exam Vital Signs: Vital Signs: Last Vital Signs Temp 98 F 04/24/22 07:21 Pulse 80 04/24/22 07:21 Resp 18 04/24/22 07:21 BP 146/68 H 04/24/22 07:21 Pulse Ox 97 04/24/22 07:21 O2 Del Method 04/24/22 07:21 O2 Flow Rate 2 04/23/22 13:15 BMI result Body Mass Index 24.1 Const: General: cooperative, healthy appearing and no acute distress Resp: Effort & Inspection: normal respiratory effort and able to speak in complete sentences Cardio: Rate: regular rate Peripheral pulses: Peripheral pulses 2+ throughout GI: Palpation (GI): Soft to palpation Skin: Lesions: no lesions Rashes: no rashes Extrem: Other: Left hip Aquacel is c/d/i. NVI. Procedures Date of Service Date of Service: 04/24/22 Progress Note: A&P Assessment and plan (1) S/P total left hip arthroplasty: Status: Acute Assessment and Plan: Continue pain mgmnt Begin ASA for dvt ppx begin PT for LTHA Dispo planning-Pending PT eval, pain mgmnt Time Spent With Patient Time: Total time spent is greater than 50% in coordination of care (as documented) at patient's floor/unit and/or counseling patient: Quality Stroke Does the patient have a stroke diagnosis?: No VTE Prior VTE?: No VTE Risk Level:: Medical - moderate - high VTE Device Contraindication: N/A - Device Ordered VTE Drug Contraindication: N/A - Med Ordered
[2022-04-24 08:00] VITALS: RESP 20
[2022-04-24 08:07] VITALS: BP 146/68; PULSE 80; O2SAT 97
--- NOTE | 2022-04-24 09:56 | PM.DS ---
DS: Providers Provider Date of Service: 04/24/22 Date of admission: 04/23/22 06:22 Primary care physician: Khalida Barnes MD Consults: 04/23/22 14:06 Consult to Hospitalist Routine Consulting Provider: Hospitalist Reason For Exam: medical management DS: Diagnosis Discharge Diagnosis (1) S/P total left hip arthroplasty: Status: Acute DS: Summary Hospital Course Hospital Course: The patient underwent a successful left total hip arthroplasty, they were transferred to PACU and then to the floor to recover. During their stay, their vitals were stable, afebrile at 97.9. Labs were unremarkable, H/H 10.0/30.7. POD 1 they were started on Aspirin 325mg po bid for DVT ppx, they also received Physical Therapy services twice a day. Prior to discharge, their dressing was changed, incision clean dry and intact, and the plan was to be discharged home and the patient to attend out patient physical therapy. Time Spent with Patient Time attestation: Total time spent providing and/or coordinating discharge services: Discharge coordination time: Less than 30 minutes Quality: Safe Use of Opioids Does Pt have an Active Cancer Diagnosis on the Problem List?: No Quality: Stroke Does the patient have a stroke diagnosis?: No Physical Exam Vital Signs: Vital Signs: Last Vital Signs Temp 98 F 04/24/22 07:21 Pulse 80 04/24/22 08:07 Resp 18 04/24/22 07:21 BP 146/68 H 04/24/22 08:07 Pulse Ox 97 04/24/22 08:07 O2 Del Method 04/24/22 07:21 O2 Flow Rate 2 04/23/22 13:15 BMI result Body Mass Index 24.1 Const: General: cooperative, healthy appearing and no acute distress Resp: Effort & Inspection: normal respiratory effort and able to speak in complete sentences Cardio: Rate: regular rate Peripheral pulses: Peripheral pulses 2+ throughout GI: Palpation (GI): Soft to palpation Skin: Lesions: no lesions Rashes: no rashes Extrem: Other: Left hip Aquacel is c/d/i. NVI. DS: Data Data Completed and Pending Pending studies at discharge: Pending at discharge 04/23/22 09:26 Surgical [PTH] Routine Labs on day of discharge: Laboratory Results - last 24 hr 04/24/22 04/24/22 05:13 05:13 WBC 8.9 RBC 3.62 L Hgb 10.0 L Hct 30.7 L MCV 84.8 MCH 27.6 MCHC 32.6 RDW 15.2 Plt Count 186 MPV 9.1 L Immature Gran % (Auto) 0.3 Neut % (Auto) 78.8 H Lymph % (Auto) 7.5 L [place] % (Auto) 13.4 H Eos % (Auto) 0.0 Baso % (Auto) 0.0 Lymph # (Auto) 0.7 L [place] # (Auto) 1.2 Eos # (Auto) 0.0 Baso # (Auto) 0.0 Abs Immat Gran (auto) 0.03 Absolute Neuts (auto) 7.0 Absolute Nucleated RBC 0.000 Nucleated RBC % (auto) 0.0 Sodium 136 Potassium 4.8 Chloride 101 Carbon Dioxide 28 Anion Gap 12 BUN 11 Creatinine 0.88 Estim Creat Clear Calc 58.1 Estimated GFR > 60 Fasting Glucose 126 H Calcium 9.6 Discharge Plan Discharge Anticipated Discharge Date/Time: 04/24/22 15:00 Patient Disposition: Home, Self-Care Discharge Diagnosis: s/p LTHA Referrals: Espinoza Calderon PA-C [[facility]] - 05/09/22 12:30 pm Discharge Medications: New celecoxib 200 mg Capsule 200 mg PO BID 30 Days Qty: 60 0RF acetaminophen 325 mg Tablet 650 mg PO Q6H PRN (Reason: Pain, Mild (Pain Scale 1-3)) 30 Days Qty: 240 0RF aspirin 325 mg Tablet 325 mg PO BID 42 Days Qty: 84 0RF oxycodone 10 mg tablet 10 mg PO Q4H PRN (Reason: Pain, Moderate (Pain Scale 4-6) 7 Days Qty: 42 0RF Rx Instructions: Partial Fill upon patient request. docusate sodium 100 mg Capsule 100 mg PO BID 30 Days Qty: 60 0RF Continued (DME) blood pressure monitor [Blood Pressure Kit] Kit See Rx Instructions .Route Qty: 1 0RF Rx Instructions: As directed ProAir RespiClick 90 mcg/actuation aerosol powdr breath activated 1 inh inhalation Q4-6H PRN (Reason: shortness of breath or wheezing) 30 Days Qty: 1 2RF clonidine HCl 0.1 mg tablet 0.1 mg PO Q8H 30 Days Qty: 90 1RF Label Comments: only takes at bedtime ropinirole 1 mg tablet 1 mg PO BEDTIME 90 Days Qty: 90 1RF Rx Instructions: administer 1-3 hours before bedtime (DME) Crutches See Rx Instructions .ROUTE .MEDSUPPLY Qty: 1 0RF Rx Instructions: As directed Vitamin C 500 mg PO DAILY Vitamin D3 25 mcg tablet 25 mcg PO DAILY ferrous sulfate 27 mg iron Tablet 27 mg PO DAILY magnesium oxide 500 mg Capsule 500 mg PO DAILY lidocaine 5 % adhesive patch,medicated 1 patch topical DAILY PRN (Reason: pain) 30 Days Qty: 30 0RF Discontinued acetaminophen [Arthritis Pain Relief (acetam)] 650 mg tablet extended release 650 mg PO Q8H PRN (Reason: fever or pain) 30 Days Qty: 90 0RF Discharge Orders: Discharge Order (Routine); Ordered 04/24/22 Ordered By: Christine Gramajo Activity on Discharge: Use cane or walker Stand Alone Forms: Patient Portal Discharge page Care Plan Goals: restorn fxn to lt hip Health Concerns: none Plan of Treatment: Physical Therapy for total hip arthroplasty: posterior precautions, gait training, ROM, strength Limit stair climbing No showering, no tub bath-keep dressing clean, dry and intact No driving x6 weeks Continue Aspirin x 6 weeks Follow up with [facility] in 2 weeks Assessment: stable for discharge
--- NOTE | 2022-04-24 10:06 | MHC.CM.PN ---
IMM 04/24/22, EMR REVIEWED, PT admitted s/p left DENISHA, cm met w/pt who reports she does not want home PT and that she knows what to do from last time. PT is adamant about her mom not wanting anyone in the house and per Ortho PT can go home w/outpt therapy and they are working on appts for pt. PCP: Khalida Barnes HCP: Audrey Daniels, parent and ptimary contact, copy requested COVID: Vacc x 2 D/C PLAN: Home w/outpt PT at [facility], friend for transport
--- NOTE | 2022-04-24 10:58 | HO.POSTANES ---
Post Anesthesia Evaluation Post Anesthesia Evaluation Vital Signs: Vital Signs Temp Pulse Resp BP Pulse Ox O2 Del Method 04/24/22 08:07 80 146/68 H 97 04/24/22 07:21 98 F 80 18 146/68 H 97 Room Air 04/24/22 04:00 97.9 F 71 18 112/63 98 Room Air 04/24/22 00:00 98.7 F 100 18 130/62 97 Room Air Anesthesia: General Mental Status: Awake Pain Control: Satisfactory Nausea/Vomiting: None Hydration: Adequate Anesthesia-Related Issues: No Anes. Related Issues
[2022-04-24] MEDS: Aspirin 325 MG TABLET PO (11:50)
[2022-04-24 13:12] VITALS: BP 146/68; PULSE 80; O2SAT 97
--- NOTE | 2022-04-24 13:14 | MHC.CM.PN ---
PT MEDICALLY CLEARED FOR D/C HOME W/OUT PT PHYSICAL THERAPY, FRIEND AT BEDSIDE AND WILL TRANSPORT
== END 2022-04-24 13:22 | disposition home or self-care (01) | DRG 470 ==
LOC: HO.SSSA 06:55 → HO.S3 13:31
PROVIDERS: Physician Assistant; Admitting Provider Orthopaedic Surgery; PCP Internal Medicine; Visit Provider Orthopaedic Surgery
PROC: 0SRB03A Replacement of Left Hip Joint with Ceramic Synthetic Substitute, Uncemented, Open Approach (ICD-10-PCS; CPT 27130; principal; 2022-04-23 07:30)
DX: M16.12 Unilateral primary osteoarthritis, left hip (principal); F41.1 Generalized anxiety disorder; F10.11 Alcohol abuse, in remission; D64.9 Anemia, unspecified; J45.30 Mild persistent asthma, uncomplicated; F32.9 Major depressive disorder, single episode, unspecified; Z20.822 Contact with and (suspected) exposure to COVID-19; Z86.73 Personal history of transient ischemic attack (TIA), and cerebral infarction without residual deficits; Z86.14 Personal history of Methicillin resistant Staphylococcus aureus infection; Z87.891 Personal history of nicotine dependence; Z79.899 Other long term (current) drug therapy
CPT/HCPCS: 36415; 72170; 80048; 85014; 85018; 85025; 86850; 86900; 86901; 87635; 87640; 87641; 88304; 88305; 88311; 93005; 97110; 97116; 97162; 97166; C1776; J0131; J1100; J1170; J2250; J2370; J2405; J2795; J3010; J3370

== ENCOUNTER → 2022-04-26 11:08 | Outpatient (BNVA) | payer OTHER, SELFPAY | PROVIDERS: PCP Internal Medicine; Visit Provider Nurse Practitioner Family | DX: M54.16 Radiculopathy, lumbar region (principal); M51.36 Other intervertebral disc degeneration, lumbar region; M41.9 Scoliosis, unspecified; M47.816 Spondylosis without myelopathy or radiculopathy, lumbar region; Z96.642 Presence of left artificial hip joint | CPT/HCPCS: Q3014 ==

== ENCOUNTER 2022-05-08 09:04 | Outpatient (RCR) | payer OTHER, MEDICAID, SELFPAY ==
--- NOTE | 2022-07-12 15:31 | MHC.PT.DC ---
[facility] [place] Office [place] Office [place] Office [address] [place] Sorto [address] [phone] F: [phone] F: [phone] F: [phone] F: [phone] Physical Therapy Discharge Report Diagnosis: LEFT DENISHA (KP) Date of Surgery: 04/23/22 Date of Evaluation: 05/08/22 Date of Discharge: 07/12/22 Treatments to Date: 1 Cancellations to Date: 5 No Shows to Date: 4 Discharge Status: Patient Elected to Stop Visit Non-compliance Discharge Summary: ATTENDED INITIAL EVAL ONLY, NO SHOWED AND CANCELLED A TOTAL OF 9 VISITS. ATTEMPTS TO REACH Pt BY PHONE WERE UNSUCESSFUL. Electronically signed by: GERMÁN SHELTON PT DPT Please sign and return to therapist. Thank you for your referral.
== END 2022-07-12 15:28 | disposition home or self-care (01) ==
LOC: HO.PT 09:04
PROVIDERS: PCP Internal Medicine; Visit Provider Orthopaedic Surgery
DX: Z96.642 Presence of left artificial hip joint (principal)
CPT/HCPCS: 97110; 97161

== ENCOUNTER → 2022-05-09 12:23 | Outpatient (BNVA) | payer OTHER, MEDICAID, SELFPAY | PROVIDERS: PCP Internal Medicine; Visit Provider Physician Assistant | DX: Z13.89 Encounter for screening for other disorder (principal) ==

== ENCOUNTER → 2022-05-21 16:01 | Outpatient (BNVA) | payer OTHER, MEDICAID, SELFPAY | PROVIDERS: PCP Internal Medicine; Visit Provider Nurse Practitioner Family | DX: M54.16 Radiculopathy, lumbar region (principal); M51.36 Other intervertebral disc degeneration, lumbar region; M41.9 Scoliosis, unspecified; M47.816 Spondylosis without myelopathy or radiculopathy, lumbar region | CPT/HCPCS: Q3014 ==

== ENCOUNTER → 2022-06-06 15:00 | Outpatient (BNVA) | payer OTHER, MEDICAID, SELFPAY | PROVIDERS: PCP Internal Medicine; Visit Provider Physician Assistant | DX: Z13.89 Encounter for screening for other disorder (principal) ==

== ENCOUNTER 2022-06-12 06:14 | Outpatient (REF) | payer OTHER, MEDICAID, SELFPAY | END 2022-06-12 06:15 | disposition home or self-care (01) | LOC: CF 06:14 | PROVIDERS: Visit Provider Internal Medicine | DX: Z13.89 Encounter for screening for other disorder (principal) ==

== ENCOUNTER → 2022-07-09 12:58 | Outpatient (BNVA) | payer OTHER, MEDICAID, SELFPAY | PROVIDERS: PCP Internal Medicine; Visit Provider Psychiatry & Neurology Neurology | DX: M54.30 Sciatica, unspecified side (principal); M47.816 Spondylosis without myelopathy or radiculopathy, lumbar region | CPT/HCPCS: 99202 ==

== ENCOUNTER 2022-07-18 09:04 | Outpatient (REF) | payer OTHER, MEDICAID, SELFPAY | END 2022-07-18 09:05 | disposition home or self-care (01) | LOC: HO.HOSX 09:04 | PROVIDERS: Visit Provider Orthopaedic Surgery | DX: Z13.89 Encounter for screening for other disorder (principal) ==

== ENCOUNTER 2022-08-16 13:33 | Outpatient (REF) | payer OTHER, MEDICAID, SELFPAY | END 2022-08-16 13:34 | disposition home or self-care (01) | LOC: HO.MAMMO 13:33 | PROVIDERS: Visit Provider Internal Medicine | DX: Z13.89 Encounter for screening for other disorder (principal) ==

== ENCOUNTER 2023-04-09 11:05 | Outpatient (AMB) | payer OTHER, MEDICAID, SELFPAY ==
--- NOTE | 2023-04-09 11:10 | AM.OFFWIN_ITS ---
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 She has noticed her finger nails peeling. Patient Tobacco Use Status: Former Tobacco user Quit Date: 2018 Allergies lactose Allergy (Severe, Verified 07/09/22 13:03) Gastrointestinal Upset gabapentin Adverse Reaction (Intermediate, Uncoded 07/09/22 13:30) abdominal pain Do you need a note to return to daycare/school/sports/work: No HPI HPI Comments History of Present Illness Details 1153 60-year-old female presents with multipl e complaints, patient tells me that she has parasites in her stool (seeing worms and eggs(, she says her dog, cat mother have the same thing she has been taking anti parasite medicines and giving them to her mother and dog shes seeing bugs everywhere at home. No improvment. also reports she brought in samples for me to see she brings in cups with stool but there is no stool in them. Patient states she is overwhelmed because she has a lot of cleaning to do and there are eggs everywhere. Not suicidal or homicidal. Just overwhelmed she tells me. She told the MA she was here for peeling nails due to a bad fungus she reported to Vita that she has fungus to all 20 nails . Physical exam patient with bizarre affect began crying and screaming mid exam saying shes overwhelmed and needs to clean. Dog growling. Not having linear thought process. This entire assesment was done with Vita RUDOLPH at bedside. Plan- ED for evaluation was advised due to a large amount of complaints, patient refusing ambulance. States she will go. after I told patient that felt like she should go to the emergency department she got very overwhelmed, got up grabbed her dog and went outside, i.e. discuss this case with community health worker in the office who called her lead section supervisor who then called 911 for a well-being check [facility] Medical History TIA (transient ischemic attack) Hx MRSA infection Depression History of alcohol abuse History of head injury Left hip pain Mild persistent asthma Insomnia Essential hypertension ANAT (generalized anxiety disorder) Moderate recurrent major depression Vertigo Surgical History Hx of left knee surgery Normal colonoscopy S/P hip replacement Family History Father CVD (cardiovascular disease) Household Members: Family Household Members Other:: mother Housing: Apartment Are you a primary director day care center to a significant other at home: No Do you presently have visiting nurse or other home services: No Alcohol intake: current Alcohol intake frequency: former alcohol drinker Alcohol type: wine and hard liquor Patient Tobacco Use Status: Former Tobacco user Quit Date: 2018 Tobacco use type: Cigarette e-Cigarette/Vaping Use: Never Used Second Hand Smoke Exposure: No service: No Current occupational status: disabled Current occupation: Right handed Cognitive needs: Yes (cane) Hearing needs: No Vision needs: Yes (Glasses) Review of Systems Const Details: Constitutional : No Weight loss, No Fever, No Chills, No Fatigue, No Malaise ENT/Mouth : No sore throat, No Rhinorrhea Eyes: No Eye Pain, No Swelling, No Redness Cardiovascular : No Chest Pain, No SOB, No Dyspnea on Exertion, No Orthopnea, No Edema, No Palpitations Respiratory : No Cough, No Sputum, No Wheezing Gastrointestinal : No Nausea, No Vomiting, No Diarrhea, No Constipation, No abdominal Pain, No Hematochezia, No Melena Genitourinary : No Dysuria, No Urinary Frequency, No Hematuria, Musculoskeletal : No joint pain, No Myalgias, No Joint Swelling Skin : No Skin Lesions, No rash Neuro : No Weakness, No Numbness, No Dizziness, No Headache Psych : + Anxiety/Panic, No Depression All other systems reviewed and are negative All systems reviewed & are unremarkable except as noted in HPI and below Physical Exam Vital Signs: Last Vital Signs Pulse 66 04/09/23 11:23 BP 140/100 H 04/09/23 11:23 Pulse Ox 98 04/09/23 11:23 Oxygen Delivery Method Room Air 04/09/23 11:23 vss Appearance: Alert.? Oriented X3.? Not having linear thoughts . Crying/screaming erratically in room. Head: Normocephalic, atraumatic, no deformities Neck: Normal inspection.? Neck supple.? CVS: Normal heart rate and rhythm on monitor Respiratory: No respiratory distress. Skin: Skin warm and dry.? Normal skin color.? Normal skin turgor.? Extremities: 5/5 strength to bilateral upper and lower extremities Neuro: Oriented X 3.? Assessment & Plan Assessment & Plan (1) Bizarre behavior: Code(s): R46.2 - Strange and inexplicable behavior (2) Abnormal bowel habits: Code(s): R19.8 - Other specified symptoms and signs involving the digestive system and abdomen Plan Patient states she will go to [facility] via private vehicle. [place] police was called for well-being check by community health worker Coding Level of Care Code Est Pt Level 4 (95892) Diagnoses Bizarre behavior R46.2 Abnormal bowel habits R19.8
[2023-04-09 11:23] VITALS: BP 140/100; PULSE 66; O2SAT 98
== END 2023-04-09 12:17 | disposition home or self-care (01) ==
PROVIDERS: PCP Internal Medicine; Visit Provider Physician Assistant
DX: F33.1 Major depressive disorder, recurrent, moderate (principal); R19.8 Other specified symptoms and signs involving the digestive system and abdomen
CPT/HCPCS: 99214

== ENCOUNTER 2024-10-14 16:54 | Outpatient (AMB) | payer OTHER, MEDICAID, SELFPAY ==
[2024-10-14 16:58] VITALS: BP 150/86; BMI 21.9
--- NOTE | 2024-10-14 16:58 | A.OFFPC_ITS ---
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 Accompanied by: Self / Same As Patient Allergies lactose Allergy (Severe, Verified 10/14/24 17:11) Gastrointestinal Upset gabapentin Adverse Reaction (Intermediate, Uncoded 10/14/24 17:11) abdominal pain Medication List - Last Reconciled 10/14/24 by Khalida Barnes MD blood pressure monitor (Blood Pressure Kit) As directed [Crutches As directed] dextran 70-hypromellose (Artificial Tears (dextran 70-hypromellose) eye drops) 1 drp ophthalmic (eye) BEDTIME lidocaine 5% 1 patch topical DAILY PRN magnesium oxide 500 mg PO DAILY Ventolin HFA 90 mcg/actuation (albuterol sulfate) 2 puffs inhalation Q6H PRN 30 days NS [Vitamin C 500 mg PO DAILY] [Vitamin D3 25 mcg PO DAILY] Tobacco use date assessed: 10/14/24 Fall risk assessment: 1 Fall in past year Last assessed Fall Risk: 10/14/24 Dental Screening Dental Screen Date: 10/14/24 Did you have a dental visit in the last 12 months?: No Did you have a dental problem in the last 6 months where you did not have access to dental care?: No Was dental information given to patient?: Patient has dentist HPI HPI Comments History of Present Illness Details The patient is a 69-year-old female presenting for an annual physical examination. She has a history of essential hypertension and underwent a colonoscopy in 2013. The patient reports a history of elevated blood pressure, with a recent reading of 150/86, which she attributes to the consumption of spicy foods. She denies consistent alcohol consumption but has a history of alcohol use disorder, mentioning an eight-day abstinence period facilitated by a stay at [facility]. The patient expresses concern about housing instability, as she is currently seeking fpc. The patient reports a prior diagnosis of streptococcal pharyngitis, though she experienced no throat pain. She describes persistent right ear discomfort since childhood, with intermittent ringing exacerbated by the use of Q-tips. She has a history of knee surgery and hip replacement, with four surgeries on one side. Additionally, the patient has experienced constipation issues, noting difficulty with burping and bowel movements, which she managed with stool softeners. The patient is allergic to gabapentin and lactose intolerant. She takes magnesium at bedtime, vitamin C, vitamin D3, calcium, zinc, and iron. She reports a lack of a rescue inhaler and requests a refill. The patient mentions respiratory concerns, particularly in her pet, Nataliya, who is overweight and experiences breathing difficulties. - Pneumonia vaccination recommended and administered, as the patient is over 65 years old. - Discussion about the need for colonosc opy, with consideration of Cologuard due to housing instability but will hold off for now. - Encouraged bone density assessment due to history of hip replacement and age. - Advised on the importance of obtaining a flu vaccination. - Discussion of dietary intake, includin g spicy foods and its impact on blood pressure. - Encouraged regular follow-up for blood pressure monitoring and management. [facility] Medical History TIA (transient ischemic attack) Hx MRSA infection Depression History of alcohol abuse History of head injury Left hip pain Mild persistent asthma Insomnia Essential hypertension ANAT (generalized anxiety disorder) Moderate recurrent major depression Vertigo Surgical History Hx of left knee surgery Normal colonoscopy S/P hip replacement Family History Father CVD (cardiovascular disease) Social History (Updated 10/14/24 @ 17:23 by Khalida Barnes MD) Household Members: Family Household Members Other:: mother Housing: Apartment Are you a primary anesthesiologist and critical care to a significant other at home: No Do you presently have visiting nurse or other home services: No Alcohol intake: former Comment: aware of trip hazard Patient Tobacco Use Status: Former Tobacco user Tobacco use type: Cigarette e-Cigarette/Vaping Use: Never Used Second Hand Smoke Exposure: No service: No Current occupational status: disabled Current occupation: Right handed Cognitive needs: Yes (cane) Hearing needs: No Vision needs: Yes (Glasses) Questionnaire PHQ-9 Over the last 2 weeks, how often have you been bothered by any of the following problems? 1. Little interest or pleasure in doing things: not at all 2. Feeling down, depressed, or hopeless: several days 3. Trouble falling or staying asleep, or sleeping too much: not at all 4. Feeling tired or having little energy: not at all 5. Poor appetite or overeating: not at all 6. Feeling bad about yourself - or that you are a failure or have let yourself or your family down: several days 7. Trouble concentrating on things, such as reading the newspaper or watching television: not at all 8. Moving or speaking so slowly that other people could have noticed. Or the opposite - being so fidgety or restless that you have been moving around a lot more than usual: not at all 9. Thoughts that you would be better off or of hurting yourself in some way: not at all Total score: 2 Depression Screening Interpretation: Negative Depression Screening Done: Yes 44741 - PHQ-9 Billing: Yes Source: Developed by Drs. Aidan Zarate, Cinda Rankin, Zachariah Horner and colleagues, with an educational manish from [employer]. Thrive Questionnaire Date Thrive assessed: 10/14/24 I am a: Patient What is your living situation today?: I do not have a steady places to live Within the past 12 months, did the food you bought not last and you didn't have the money to get more?: Never true Within the past 12 months, did you worry whether your food would run out before you got money to buy more?: Never true Do you have trouble paying for medicines?: I choose not to answer this question Do you have trouble getting transportation to medical appointments?: I choose not to answer this question Do you have trouble paying your heating and electricity bill?: I choose not to answer this question Do you have trouble taking care of your child, family member or friend?: I choose not to answer this question Do you have trouble with day-to-day activities such as bathing, preparing meals, shopping, managing finances, etc.?: I choose not to answer this question Are you currently unemployed and looking for a job?: I choose not to answer this question Are you interested in more education?: I choose not to answer this question Please select the resources that you would like help with: None Currently or been in a relationship where the following occur: No concerns reported THRIVE Score: 1 AUDIT C Alcohol Use Questionnaire (AUDIT-C) 1. How often do you have a drink containing alcohol?: Never Total Score: 0 Score Reviewed/Action Taken: No ANAT-7 AMB Questionnaire ANAT-7 Date ANAT - 7 assessed: 10/14/24 Feeling nervous, anxious, or on edge: 1 = Several days Not being able to stop or control worryin = Not at all Worrying too much about different things: 1 = Several days Trouble relaxin = Not at all Being so restless that it is hard to sit still: 0 = Not at all Becoming easily annoyed or irritable: 0 = Not at all Feeling afraid as if something awful might happen: 0 = Not at all Total ANAT-7 score (0-4 normal; 5-9 mild; 10-14 moderate; 15-21 severe): 2 Source: Developed by Drs. Aidan Zarate, Cinda Rankin, Zachariah Horner and colleagues, with an educational manish from [employer]. ANAT-7 Assessment Billing ANAT-7 Assessment Tool: ANAT-7 Assessment 85811 Review of Systems Const All systems reviewed & are unremarkable except as noted in HPI and below Card Denies chest pain at rest, Denies chest pain with activity, Denies edema, Denies irregular heart rhythm, Denies claudication, Denies dyspnea, Denies dyspnea on exertion, Denies orthopnea, Denies paroxysmal nocturnal dyspnea and Denies slow heart rate Resp Denies cough, Denies dyspnea and Denies dyspnea on exertion Physical exam (Primary Care) Vital Signs: Last Vital Signs BP 150/86 H 10/14/24 16:58 BMI result Body Mass Index 21.9 Tobacco/Smoking Status: Tobacco use Status Tobacco use date assessed 10/14/24 10/14/24 17:06 Patient Tobacco Use Status Former Tobacco user 10/14/24 17:23 Tobacco use type Cigarette 10/14/24 17:23 e-Cigarette/Vaping Use Never Used 10/14/24 17:23 PHQ-9: PHQ-9 Score PHQ-9: Total score 2 10/14/24 17:35 Depression Screening Interpretation: Negative Thrive Assessment: Date of Thrive Assessment Date Thrive assessed 10/14/24 10/14/24 17:09 Currently or been in a relationship where the following occur: No concerns reported HENMT Head: Yes normal to inspection, Yes normocephalic and Yes atraumatic Ears: external ears normal Eyes General: appearance normal, both eyes and all related structures Eyelids: Yes eyelids normal Conjunctivae: conjunctivae normal Neck Neck: Yes normal visual inspection and Yes supple Resp Effort & Inspection: normal respiratory effort Auscultation: clear to auscultation bilaterally Cardio Jugular venous distension: no JVD Rate: regular rate Rhythm: regular rhythm Heart sounds: S1 normal heart sound present and S2 normal heart sound present GI Inspection: Yes normal to inspection Palpation (GI): Soft to palpation and nontender Auscultation: normal bowel sounds Skin General skin exam: no rashes or lesions noted Neuro General: no focal motor deficits Extrem General: Yes full ROM Psych Appearance: grossly normal Immunizations pneumoc 20-elliott conj-dip cr(PF) 0.5 mL IM syringe Performing Provider: Khalida Barnes MD [facility] Administered by: IRWIN Preciado on 10/14/24 17:35 Dose Route Admin Location Dispensed Lot Number Expiration Date [facility] Campaign 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 0.5 mL IM Left Deltoid 0.5 mL [id number] 06/19/25 [employer] VIS Given Date VIS Provided VIS Publication Date 10/14/24 Single Vaccine 22 Eligibility Eligibility Date Funding Source Not [facility] Eligible 10/14/24 Private Coding Level of Care Code Est Pt Prev Care >65y(21136) Diagnoses Physical exam Z00.00 Moderate recurrent major depression F33.1 Additional Codes ANAT-7 Assessment Billing - ANAT-7 Assessment Tool: ANAT-7 Assessment 46414 ([id number]) PHQ-9 - 78561 - PHQ-9 Billing: Yes ([id number]) Time Spent (min) 35 Assessment & Plan Assessment & Plan (1) Physical exam: Onset Date: ~04/2021 Comment: Colonoscopy due 2 years ago but pt would like to hold off for referral. Pap last in [place]. Pt declines. Due for eye exam 2 years ago. Code(s): Z00.00 - Encounter for general adult medical examination without abnormal findings Category: Medical (2) Moderate recurrent major depression: Code(s): F33.1 - Major depressive disorder, recurrent, moderate Category: Medical Plan With her housing instability, we discussed Cologuard as an alternative to a colonoscopy, although she declined due to the lack of a permanent address. The pneumonia vaccine was administered as she is over 65 years old and had her previous dose before 65. We reviewed her history of streptococcal pharyngitis and emphasized good respiratory hygiene. The right ear discomfort was noted, and careful monitoring without Q-tips was advised. Dietary modifications and continued use of stool softeners were discussed for her constipation. We ensured she has a refill for her rescue inhaler and advised a bone density assessment due to her hip replacement history. Follow-up for her blood pressure was recommended to ensure effective management.: Patient was informed and verbally consented to the use of an ambient scribe for clinic note documentation during this visit. I discussed with the patient the importance of blood pressure management and the impact of diet, particularly spicy foods, on her condition. We explored alternatives to colonoscopy, such as Cologuard, but she opted to wait due to her current housing situation. I explained the need for the pneumonia vaccine, given her age and previous vaccination history, and she consented to receive it during the visit. We reviewed her history of streptococcal pharyngitis and the importance of maintaining respiratory hygiene. I advised against using Q-tips for her right ear discomfort and emphasized monitoring her symptoms. We discussed dietary modifications to address her gastrointestinal issues and the importance of a balanced diet in managing her blood pressure and overall health. I ensured she understood the need for a rescue inhaler and the potential benefits of a bone density assessment. We agreed on the importance of follow-up for her blood pressure management. Orders: Orders Pneumococcal 20 Immunization 10/14/24 Z23 - Encounter for immunization Medications: Refilled Ventolin HFA 90 mcg/actuation (albuterol sulfate) 2 puffs inhalation Q6H PRN 8 grams 0RF shortness of breath or wheezing 30 days NS Patient Instructions: - Monitor blood pressure regularly and follow up for management. - Maintain good respiratory hygiene and avoid using Q-tips in ears. - Consider dietary modifications, reducing spicy foods and incorporating more vegetables. - Continue use of stool softeners for constipation as needed. - Ensure refill of rescue inhaler and have it available for use. - Receive bone density assessment, especially given hip replacement history. - Return for follow-up appointments to monitor health and manage conditions.
== END 2024-10-14 17:37 | disposition home or self-care (01) ==
LOC: HO.HMCH 16:55
PROVIDERS: PCP Internal Medicine; Visit Provider Internal Medicine
DX: Z23 Encounter for immunization (principal)

== ENCOUNTER → 2024-10-14 16:54 | Outpatient (BNVA) | payer OTHER, SELFPAY | PROVIDERS: PCP Internal Medicine; Visit Provider Internal Medicine | DX: Z00.00 Encounter for general adult medical examination without abnormal findings (principal); Z23 Encounter for immunization; F33.1 Major depressive disorder, recurrent, moderate; I10 Essential (primary) hypertension | CPT/HCPCS: 90471; 90677; 96127; 99397 ==

== ENCOUNTER 2024-12-17 20:41 | Emergency (ER) | payer OTHER, SELFPAY ==
--- NOTE | 2024-12-17 | ECG_ITS ---
Test Reason : TACHY Blood Pressure : */* mmHG Vent. Rate : 111 BPM Atrial Rate : 111 BPM P-R Int : 146 ms QRS Dur : 82 ms QT Int : 330 ms P-R-T Axes : 65 51 50 degrees QTcB Int : 448 ms Sinus tachycardia Possible Left atrial enlargement Borderline ECG When compared with ECG of 09-Apr-2022 10:25, No significant change was found Referred By: Generic ED Physician Electronically Signed By: SABAS RODRIGUEZ MD
[2024-12-17 21:11] VITALS: BP 114/74; PULSE 118; RESP 29; TEMP 36.9; O2SAT 92; BMI 22.7
[2024-12-17 21:42] VITALS: BP 139/84; PULSE 135; O2SAT 94
[2024-12-17 22:31] LABS: MANUAL DIFF FLAG NO
[2024-12-17 22:32] LABS: Hematocrit 35.6 % (37.0-47.0); Hemoglobin 12.2 g/dl (12.0-16.0); Imm Gran Abs Auto 0.03 X10*3/uL (0.00-0.03); Imm Gran Pct Auto 0.5 % (0.0-0.4); Lymphocytes Absolute Auto 0.8 X10*3/uL (1.2-4.9); Mean Corpuscular HGB Conc 34.3 g/dl (31.0-35.0); Mean Corpuscular Hemoglobin 29.5 pg (27.0-33.0); Mean Corpuscular Volume 86.2 fL (80.0-98.0); NRBC Abs Auto 0.000 X10*3/uL (0.0-0.012); NRBC Pct Auto 0.0 /100WBC (0.0-0.2); Platelet Count 150 X10*3/uL (160-400); Red Blood Count 4.13 X10*6/uL (4.20-5.50); White Blood Count 6.3 X10*3/uL (4.8-10.8)
[2024-12-17 22:33] LABS: Appearance Urine Clear; Glucose Urine UA Negative (Negative); PH 6.0 (5.0-9.0); Specific Gravity - Urine 1.010 (1.005-1.025); UMIC TRIGGER UACC YES
--- NOTE | 2024-12-17 22:35 | PC.NURSE ---
pt changer fixer and triage by charge Nurse Jerrica, labs collected, ekg completed.
[2024-12-17 22:38] LABS: UACC Culture Trigger YES
--- NOTE | 2024-12-17 22:40 | ED_ITS ---
HPI - Overdose General Chief Complaint: Overdose Stated Complaint: ETOH AND DRUG USE Time Seen by Provider: 12/17/24 22:06 Source: patient and EMS Mode of arrival: EMS Limitations: other ( intoxicated) History of Present Illness ED Provider: Dr. Savannah Del Rio HPI Narrative: patient comes to the emergency room via ambulance. According to EMS, patient was found on the streets, found slouched over a city bus stop. Upon EMS arrival, patient had agonal breathing, patient was given 8 mg of intranasal Narcan and ventilated via Ambu bag. By the time patient arrived to the emergency room, patient woke up, patient seems to be under the influence of alcohol. Patient admits that she drank alcohol, but to her knowledge she does not use street drugs or narcotics. Patient denies SI or HI. Patient states that she is very concerned because when she was in the street, she had her service dog with her and she does not know where the dog is Related Data Home Medications ?Medication ?Instructions ?Recorded ?Confirmed Vitamin C 500 mg PO DAILY 04/09/22 Vitamin D3 25 mcg PO DAILY 04/09/22 magnesium oxide 500 mg capsule 500 mg PO DAILY 2 10/14/24 Previous Rx's ?Medication ?Instructions ?Recorded blood pressure monitor (Blood #1 ea 04/20/21 Pressure Kit) Crutches #1 ea 04/08/22 Ventolin HFA 90 mcg/actuation 2 puff inhalation Q6H AL N 10/17/24 aerosol inhaler (albuterol sulfate) shortness of breat h or wheezing 30 days #8 grams dextran 70-hypromellose eye drops 1 drp ophthalmic (ey e) BEDTIME PRN 10/17/24 (Artificial Tears (dextran dry eye(s) 30 days #15 mL 70-hypromellose) eye drops) lidocaine 5 % topical patch 1 patch topical DAILY PRN for pain 10/17/24 #30 patches terbinafine HCl 250 mg tablet 250 mg PO DAILY 90 days #90 tabs 10/17/24 Allergies Allergy/AdvReac Type Severity Reaction Status Date / Time lactose Allergy Severe Gastrointestinal Verified 12/17/24 21:13 Upset gabapentin AdvReac Intermediate abdominal Uncoded 12/17/24 21:13 pain Review of Systems 2 Review of Systems: Constitutional : No Weight loss, No Fever, No Chills, No Night Sweats, No Fatigue, No Malaise ENT/Mouth : No Hearing loss, No Ear Pain, No Nasal Congestion, No Sinus Pain, No Hoarseness, No sore throat, No Rhinorrhea, No Swallowing Difficulty Eyes: No Eye Pain, No Swelling, No Redness, No Foreign Body, No Discharge, No Vision Changes Cardiovascular : No Chest Pain, No SOB, No Dyspnea on Exertion, No Orthopnea, No Edema, No Palpitations Respiratory : No Cough, No Sputum, No Wheezing, No Smoke Exposure, No Dyspnea Gastrointestinal : No Nausea, No Vomiting, No Diarrhea, No Constipation, No abdominal Pain, No Hematochezia, No Melena Genitourinary : no irregular bleeding, No Dysuria, No Urinary Frequency, No Hematuria, No Urinary Incontinence, No Urgency, No Flank Pain, No Urinary Flow Changes, No Hesitancy Musculoskeletal : No joint pain, No Myalgias, No Joint Swelling Skin : No Skin Lesions, No rash Neuro : No Weakness, No Numbness, No Paresthesias, No Loss of Consciousness, No Dizziness, No Headache Psych : No Anxiety/Panic, No Depression, No SI/HI/AH/VH, admits to alcohol abuse, denies narcotic abuse, denies SI or HI Heme/Lymph: No Bruising, No Bleeding,No Lymphadenopathy Endocrine : No Polyuria, No Polydipsia, No Temperature Intolerance PMFSH Past Medical History Medical History TIA (transient ischemic attack) Hx MRSA infection Depression History of alcohol abuse History of head injury Left hip pain Mild persistent asthma Insomnia Essential hypertension ANAT (generalized anxiety disorder) Moderate recurrent major depression Vertigo Surgical History Hx of left knee surgery Normal colonoscopy S/P hip replacement Family History Family History Father CVD (cardiovascular disease) Social History Social History (Updated 10/14/24 @ 17:23 by Khalida Barnes MD) Household Members: Family Household Members Other:: mother Housing: Apartment Are you a primary care manager cna to a significant other at home: No Do you presently have visiting nurse or other home services: No Alcohol intake: current Comment: aware of trip hazard Patient Tobacco Use Status: Former Tobacco user Tobacco use type: Cigarette Smoked in Last 30 Days: Yes e-Cigarette/Vaping Use: Never Used Second Hand Smoke Exposure: No Use of substances other than those prescribed or required for medical reasons: Unknown Advance Directives: No Advance Directives Information Provided: No service: No Current occupational status: disabled Current occupation: Right handed Cognitive needs: Yes (cane) Hearing needs: No Vision needs: Yes (Glasses) Physical Exam 2 Exam: Exam: Appearance: Alert. Oriented X3. No acute distress. coherent Eyes: Pupils equal, round and reactive to light. ENT: Pharynx normal. Neck: Normal inspection. Neck supple. No lymph nodes noted. No crepitus CVS: Normal heart rate and rhythm. Pulses normal. Normal S1 and S2 Respiratory: No respiratory distress. Breath sounds normal. No Wheezing. No rales Abdomen: Soft and nontender. No rigidity. No distention. Skin: Skin warm and dry. Normal skin color. Normal skin turgor. Extremities: No lower extremity edema. No Lacerations. No Rash Neuro: Oriented X 3. No motor deficit. No sensory deficit. Moving all extremities. No slurred speech. CN 2 through 12 grossly intact Psych: calm, cooperative, normal affect Vital Signs: Vital Signs: Last Vital Signs Temp 97.8 F 12/17/24 23:24 Pulse 103 H 12/17/24 23:24 Resp 23 H 12/17/24 23:24 BP 161/105 H 12/17/24 23:24 Pulse Ox 98 12/17/24 23:24 O2 Del Method Room Air 12/17/24 23:24 BMI result Body Mass Index 22.7 Course Course Course Narrative: at this time that I am evaluating the patient, patient is awake, alert and oriented x3, coherent. Patient states that she still does not remember what happened. Patient is adamant that she only use alcohol, no narcotics to her knowledge. Our charge nurse was able to in touch with PD, they found her service dog. The dog was taken to halfway in [place] and she may pick her up tomorrow all of patient's labs pending Medications Administered Discontinued Medications Generic Name Dose Route Start Last Admin Trade Name Freq PRN Reason Stop Dose Admin Calcium Carbonate 750 mg 12/17/24 23:30 08/01/25 23:33 Calcium Carbonate 750 Mg Tab.Chew PO 12/17/24 23:31 750 mg ONCE ONE Administration Ondansetron HCl 4 mg 12/17/24 23:29 12/17/24 23:33 Ondansetron Hcl 4 Mg/2 Ml Vial IVPUSH 12/17/24 23:30 4 mg ONCE ONE Administration Medical Decision Making Medical Decision Making [facility] Narrative: my interpretation of labs: No significant abnormality in patient's hematology, Platelets are a bit on the lower side., electrolytes within normal limits, AST and ALT slightly bumped, likely secondary to alcohol abuse. Urinalysis positive for leukocyte esterase, negative for nitrates, squamous epithelial cells present, no UTI symptoms. Urine toxicology positive for opiates, fentanyl, cocaine, alcohol level 188 patient remains awake, alert, a bit nauseous, given nausea medication. Plan: Metabolize to freedom and discharge patient will be provided with home Narcan Differential Diagnosis Differential Diagnoses: The differential diagnosis associated with the presentation includes ( alcohol abuse, accidental overdose, polysubstance abuse) Admission/Observation Consideration of admission/observation: Escalation of care including admission/observation considered ( patient is under physician observation waiting for her labs and to become steady on her feet to be discharged) Lab Data [facility] Lab Attestation statement: I reviewed the patient's lab results. 12/17/24 22:24 12/17/24 22:24 Labs: Lab Results 12/17/24 12/17/24 Range/Units 22:20 22:24 WBC 6.3 (4.8-10.8) X10*3/uL RBC 4.13 L (4.20-5.50) X10*6/uL Hgb 12.2 D (12.0-16.0) g/dl Hct 35.6 L (37.0-47.0) % MCV 86.2 (80.0-98.0) fL MCH 29.5 (27.0-33.0) pg MCHC 34.3 (31.0-35.0) g/dl RDW 14.4 (11.0-16.0) % Plt Count 150 L (160-400) X10*3/uL MPV 8.8 L (9.4-12.3) fL Immature Gran % (Auto) 0.5 H (0.0-0.4) % Neut % (Auto) 79.8 H (45-73) % Lymph % (Auto) 11.9 L (20-40) % [place] % (Auto) 7.2 (2-11) % Eos % (Auto) 0.3 (0-4) % Baso % (Auto) 0.3 (0-2) % Lymph # (Auto) 0.8 L (1.2-4.9) X10*3/uL [place] # (Auto) 0.5 (0.1-1.2) X10*3/uL Eos # (Auto) 0.0 (0.0-0.4) X10*3/uL Baso # (Auto) 0.0 (0.0-0.2) X10*3/uL Abs Immat Gran (auto) 0.03 (0.00-0.03) X10*3/uL Absolute Neuts (auto) 5.0 (2.0-8.3) x10*3/uL Absolute Nucleated RBC 0.000 (0.0-0.012) X10*3/uL Nucleated RBC % (auto) 0.0 (0.0-0.2) /100WBC Sodium 142 (135-145) mmol/L Potassium 3.7 (3.3-5.1) mmol/L Chloride 108 (96-108) mmol/L Carbon Dioxide 25 (22-29) mmol/L Anion Gap 13 (12-20) BUN 17 H (9-16) mg/dL Creatinine 1.01 (0.5-1.4) mg/dL Estim Creat Clear Calc 51.1 Estimated GFR 54 Random Glucose 111 (60-115) mg/dL Calcium 8.6 D (8.4-10.2) mg/dL Total Bilirubin 0.2 (0.0-1.0) mg/dL AST 66 H (5-31) U/L ALT 42 H (0-31) U/L Alkaline Phosphatase 76 (39-117) U/L Total Protein 7.3 (6.5-8.0) g/dL Albumin 4.2 (3.5-5.0) g/dL Urine Color Yellow Urine Appearance Clear Urine pH 6.0 (5.0-9.0) Ur Specific [place] 1.010 (1.005-1.025) Urine Protein 30 (1+) H (Neg-Trace) mg/dL Urine Glucose (UA) Negative (Negative) mg/dL Urine Ketones Negative (Negative) mg/dL Urine Blood Negative (Negative) Urine Nitrite Negative (Negative) Ur Leukocyte Esterase Small (1+) H (Negative) Urine RBC 0-2 (0-2) /HPF Urine WBC 6-10 H (0-5) /HPF Ur Squamous Epith Cells 3-5 (0-2) /HPF Urine Bacteria 1+ (None Seen) Hyaline Casts 0-2 (0-2) /LPF Urine Opiates Screen POSITIVE H (Not Detect) Ur Buprenorphine Scrn Not Detected (Not Detect) ng/mL Ur Oxycodone Screen Not Detected (Not Detect) ng/mL Urine Methadone Screen Not Detected (Not Detect) ng/mL Urine Fentanyl Screen POSITIVE H (Not Detect) Ur Barbiturates Screen Not Detected (Not Detect) Ur Phencyclidine Scrn Not Detected (Not Detect) Ur Amphetamines Screen Not Detected (Not Detect) U Benzodiazepines Scrn Not Detected (Not Detect) Urine Cocaine Screen POSITIVE H (Not Detect) U Marijuana (THC) Screen Not Detected (Not Detect) Ethyl Alcohol 188 mg/dL Critical Care Time Critical Care Time Critical Care Time: Yes Total Critical Care Time: 45 Attestation: I have personally provided critical care time. Time includes review of lab data, radiology results, discussion with consultants, and monitoring for potential decompensation. Intervention performed as documented. Discharge Plan Discharge Clinical Impression: Alcohol intoxication, Accidental overdose Patient Disposition: Home, Self-Care Instructions: Alcohol Intoxication (ED), Adult Overdose (ED) Additional Instructions: Alcohol use disorder You were seen in the Emergency Department today for treatment of alcohol use disorder.? You may have been given medications to help with your withdrawal symptoms.? Please do not drink alcohol with them. This is very dangerous and can cause respiratory depression or other adverse reactions depending on the medication. If you would like to cut down or stop your alcohol use please consider calling our outpatient Addiction Treatment office:? [facility] (M-F 9a-5p) [address] [place] [address] ? You have also been given a list of treatment providers in the area that can assist as well.? If you experience seizures, vomiting blood, black stools, falls, severe headache, chest pain, fevers, trouble breathing, hallucinations or any other concerns you need to call 911 or seek immediate care. Please stay hydrated. Overdose You were seen in our Emergency Department for an overdose today. You received narcan in order to reverse the effects of overdose. Narcan only lasts about 45 min to 1 hour in the system. You may have been given narcan to take home with you today, please keep it near you if you are going to use again, so others can use it if needed.? The number one risk for fatal overdose is using alone? [employer] is a 09/12 hotline where you can be on the phone with someone while you use, and they can call for help if they suspect an overdose: [phone] Things to look out for when you leave include severe vomiting or diarrhea, headaches, muscle cramps, fever, coughing, chest pain, or if you feel so short of breath you cannot walk to the bathroom. Please seek care and return any time for worsening symptoms.? You may have been provided with safer injection?items, please take time to take care of YOU and your health. Use new supplies whenever possible to lessen the chances of infections and other illnesses.? If you need more supplies, please go [facility],? [address] [place] [address] OR you can call or text to coordinate delivery of safer supplies. If you decide you want to stop or cut down on how much you?re using, please call the numbers on the list provided to you or you can come to our outpatient Addiction Treatment office [facility] (M-F 9am-5p) [address] [place] [address], [facility] [address] [place], [place]. [phone] Prescriptions: No Action (DME) blood pressure monitor [Blood Pressure Kit] Kit See Rx Instructions .Route Qty: 1 0RF Rx Instructions: As directed (DME) Crutches See Rx Instructions .ROUTE .MEDSUPPLY Qty: 1 0RF Rx Instructions: As directed Artificial Tears([id number]) Drops 1 drp ophthalmic (eye) BEDTIME PRN (Reason: dry eye(s)) 30 Days Qty: 15 6RF lidocaine 5 % adhesive patch,medicated 1 patch topical DAILY PRN (Reason: for pain) Qty: 30 3RF albuterol sulfate [Ventolin HFA] 90 mcg/actuation HFA aerosol inhaler 2 puff inhalation Q6H PRN (Reason: shortness of breath or wheezing) 30 Days Qty: 8 2RF terbinafine HCl 250 mg tablet 250 mg PO DAILY 90 Days Qty: 90 0RF Vitamin C 500 mg PO DAILY Vitamin D3 25 mcg tablet 25 mcg PO DAILY magnesium oxide 500 mg Capsule 500 mg PO DAILY Print Language: Unable To Collect
[2024-12-17 22:42] LABS: Cannabinoid Screen Urine Not Detected (Not Detect)
[2024-12-17 22:46] LABS: Alanine Aminotransferase 42 U/L (0-31); Albumin Level 4.2 g/dL (3.5-5.0); Alkaline Phosphatase 76 U/L (39-117); Anion Gap 13 (12-20); Aspartate Amino Transferase 66 U/L (5-31); Blood Urea Nitrogen 17 mg/dL (9-16); Calcium 8.6 mg/dL (8.4-10.2); Carbon Dioxide 25 mmol/L (22-29); Chloride 108 mmol/L (96-108); Creatinine Clr Calc Pharmacy 51.1; Estimated Glomerular Filt Rate 54; Potassium 3.7 mmol/L (3.3-5.1); Sodium 142 mmol/L (135-145); Total Protein 7.3 g/dL (6.5-8.0)
[2024-12-17 23:24] VITALS: BP 161/105; PULSE 103; RESP 23; TEMP 36.6; O2SAT 98
[2024-12-18 06:15] VITALS: BP 162/89; PULSE 100; RESP 16; TEMP 37.2; O2SAT 98
[2024-12-18] MEDS: Naloxone HCl Nasal TAKE HOME 4 MG SPRAY 8 MG NOSTRILALT (07:53)
[2024-12-18 07:58] VITALS: BP 162/89; PULSE 100; RESP 16; TEMP 37.2; O2SAT 98
== END 2024-12-18 08:27 | disposition home or self-care (01) ==
PROVIDERS: Emergency Provider Emergency Medicine
DX: F10.129 Alcohol abuse with intoxication, unspecified (principal); Y90.6 Blood alcohol level of 120-199 mg/100 ml; T65.91XA Toxic effect of unspecified substance, accidental (unintentional), initial encounter; Y92.410 Unspecified street and highway as the place of occurrence of the external cause; Z79.899 Other long term (current) drug therapy
CPT/HCPCS: 36415; 80053; 80307; 81001; 85025; 87086; 93005; 96374; 99285; J2405

== ENCOUNTER → 2024-12-17 22:12 | Outpatient (BNV) | payer OTHER, MEDICAID, SELFPAY | PROVIDERS: Emergency Provider Emergency Medicine; Visit Provider Internal Medicine Cardiovascular Disease | DX: R00.0 Tachycardia, unspecified (principal) | CPT/HCPCS: 93010 ==

== ENCOUNTER 2025-05-09 14:29 | Outpatient (AMB) | payer MEDICARE, SELFPAY ==
[2025-05-09 15:59] VITALS: BP 120/74; PULSE 92; TEMP 36.6; O2SAT 99; BMI 21.5
--- NOTE | 2025-05-09 15:59 | AM.OFFWIN_ITS ---
Intake Vital Signs 05/09/25 15:59 Height 5 ft 7 in Weight 137 lb BMI 21.5 BP 120/74 Blood Pressure Location Rt brachial Position Sitting Pulse 92 Pulse Source Pulse Oximeter Temp 97.9 F Temp Source Oral Pulse Oximetry (%) 99 Oxygen Delivery Method Room Air Intake Visit Reasons: EP severe pain in abdomen Intake Note: pt presents with severe RLQ pain and also RT rib pain for 2 weeks, no diarrhea, c/o constipation and mild nausea. pt reports that she was moving items into new home over the last couple weeks. Patient Tobacco Use Status: Former Tobacco user Allergies lactose Allergy (Severe, Verified 12/17/24 21:13) Gastrointestinal Upset gabapentin Adverse Reaction (Intermediate, Verified 05/09/25 16:03) Abdominal Pain Do you need a note to return to daycare/school/sports/work: No HPI HPI Comments History of Present Illness Details 70-year-old female presents to the walk- in clinic with complaints of severe right lower quadrant (RLQ) abdominal pain ongoing for approximately 2 weeks. Pain is associated with constipation, abdominal bloating, and mild nausea. Denies vomiting. Reports no bowel movement for the past 4 days. She has not taken any OTC medications for symptom relief. Denies diarrhea. Denies urinary symptoms including dysuria, frequency, or hem aturia. Denies vaginal symptoms including discharge or bleeding. Patient reports she has recently been moving into a new apartment and has been lifting and moving heavy boxes over the past several days. She believes she may have pulled a muscle in the RLQ area during this activity. [facility] Medical History (Updated 05/09/25 @ 17:25 by Rissa Soriano NP) Abdominal pain, right lower quadrant TIA (transient ischemic attack) Hx MRSA infection Depression History of alcohol abuse History of head injury Left hip pain Mild persistent asthma Insomnia Essential hypertension ANAT (generalized anxiety disorder) Moderate recurrent major depression Vertigo Surgical History Hx of left knee surgery Normal colonoscopy S/P hip replacement Family History Father CVD (cardiovascular disease) Social History (Updated 10/14/24 @ 17:23 by Khalida Barnes MD) Household Members: Family Household Members Other:: mother Housing: Apartment Are you a primary point of care specialist to a significant other at home: No Do you presently have visiting nurse or other home services: No Alcohol intake: current Comment: aware of trip hazard Patient Tobacco Use Status: Former Tobacco user Tobacco use type: Cigarette e-Cigarette/Vaping Use: Never Used Second Hand Smoke Exposure: No service: No Current occupational status: disabled Current occupation: Right handed Cognitive needs: Yes (cane) Hearing needs: No Vision needs: Yes (Glasses) Review of Systems Const All systems reviewed & are unremarkable except as noted in HPI and below Physical Exam Vital Signs: Last Vital Signs Temp 97.9 F 05/09/25 15:59 Pulse 92 05/09/25 15:59 BP 120/74 05/09/25 15:59 Pulse Ox 99 05/09/25 15:59 Oxygen Delivery Method Room Air 05/09/25 15:59 BMI result Body Mass Index 21.5 Const General: no acute distress; No comfortable Nutritional Appearance: well nourished Orientation/consciousness: patient oriented x3 Resp Effort & Inspection: normal respiratory effort Cardio Rate: regular rate GI Inspection: Yes normal to inspection Palpation (GI): Soft to palpation, not firm, Tenderness to palpation present (GI) in the RLQ and suprapubicly, Guarding due to palpation present (GI), not rigid and No hepatosplenomegaly present Auscultation: normal bowel sounds Neuro General: patient oriented x3, gait normal and moves all extremities Psych Speech and movement: Normal speech and movement present Assessment & Plan Assessment & Plan (1) Abdominal pain, right lower quadrant: Code(s): R10.31 - Right lower quadrant pain Plan: Differential includes constipation, abdominal wall muscle strain, appendiceal pathology, bowel obstruction, or other intra-abdominal process. Ordered SenoKot and Miralax Educated patient on concerning symptoms including worsening pain, vomiting, fever, inability to pass gas, or new urinary/bowel changes Patient advised to proceed to ED for further evaluation and management if symptoms get worse overnight. Patient verbalized understanding. Medications: New sennosides (Senokot) 17.2 mg (2 x 8.6 mg) PO BEDTIME 30 tabs 0RF R10.31 - Right lower quadrant pain polyethylene glycol 3350 (Miralax) 17 grams PO BID 238 grams 0RF K59.00 - Constipation, unspecified Coding Level of Care Code Est Pt Level 4 (08952) Diagnoses Abdominal pain, right lower quadrant R10.31 Time Spent (min) 20
--- OUTSIDE RECORDS SUMMARY | 2025-05-09 17:54 | XMS_ITS | Clinical Summary ---
Author Organization [employer] Address [address] [facility] [address] [place] [address] Care Team Providers Care Weekend Caregiver Name Role Phone Unavailable Primary Care Provider Unavailabl e Social History Tobacco Use Types Packs/Day Years Used Date Smoking Tobacco: Never Assessed Comments Unknown Sex and Gender Information Value Date Recorded Sex Assigned at Female 03/18/2022 10:27 AM EDT Legal Sex Female 10:27 AM EDT Gender Identity Choose not to disclose 10:27 AM EDT Sexual Orientation Choose not to disclose 2021 10:27 AM EDT Plan of Treatment Health Maintenance Due Date Last Done Comments CT Colonography 1955 Colonoscopy 1955 Colorectal Cancer Screening 1955 Depression Screening 1955 FIT DNA/Cologuard 1955 FIT 1955 FOBT 1955 Sigmoidoscopy 1955 Alcohol/Substance Use Screening 1967 Tobacco Screening 1967 DTaP/Tdap/Td Vaccines (1 - Tdap) 1974 Mammogram 1995 Pneumococcal Vaccine: 50+ Ye ars (1 of 1 - PCV) 2005 Zoster Vaccines (1 of 2) 2005 COVID-19 Vaccine ( - 2024-2 6 season) 2025 Influenza Vaccine (#1) 2025 RSV Patients and Pa tients Aged 60 years or older (1 - 1-dose 75+ series) 2030 HIB Vaccines Aged Out No longer eligi ble based on patient's age to complete this topic HPV Vaccines Aged Out No longer eligi ble based on patient's age to complete this topic Hepatitis A Vaccines Aged Out No long er eligible based on patient's age to complete this topic Hepatitis B Vaccines Aged Out No long er eligible based on patient's age to complete this topic IPV Vaccines Aged Out No longer eligi ble based on patient's age to complete this topic Meningococcal B Vaccine Aged Out No l onger eligible based on patient's age to complete this topic Meningococcal Vaccine Aged Out No messi rodrigo eligible based on patient's age to complete this topic RSV under 20 months Aged Out No longe r eligible based on patient's age to complete this topic Rotavirus Vaccines Aged Out No longer eligible based on patient's age to complete this topic
--- OUTSIDE RECORDS SUMMARY | 2025-05-09 17:54 | XMS_ITS | Encounter Summary ---
Author Organization [employer] Address [address] [facility] [address] [place] [address] Care Team Providers Care School Cafeteria Cook Name Role Phone Unavailable Primary Care Provider Unavailabl e Encounter Details Date Type Department Care Team (Latest Contact Info) Description 05/17/2021 Abstract [facility] CONVERSIONS Dental, Provider, DDS Social History Tobacco Use Types Packs/Day Years Used Date Smoking Tobacco: Never Assessed Comments Unknown Sex and Gender Information Value Date Recorded Sex Assigned at Female 03/18/2022 10:27 AM EDT Legal Sex Female 10:27 AM EDT Gender Identity Choose not to disclose 10:27 AM EDT Sexual Orientation Choose not to disclose 2021 10:27 AM EDT documented as of this encounter Plan of Treatment Not on file documented as of this encounter Visit Diagnoses Not on filedocumented in this encounter
== END 2025-05-09 17:16 | disposition home or self-care (01) ==
PROVIDERS: PCP Internal Medicine; Visit Provider Nurse Practitioner Family
DX: R10.31 Right lower quadrant pain (principal)

== ENCOUNTER → 2025-05-09 14:29 | Outpatient (BNVA) | payer MEDICARE, SELFPAY | PROVIDERS: PCP Internal Medicine; Visit Provider Nurse Practitioner Family | DX: R10.31 Right lower quadrant pain (principal); K59.00 Constipation, unspecified | CPT/HCPCS: 99212 ==